=== PATIENT | male | born 1950 | race African-American/Black ===

== ENCOUNTER 2017-06-19 01:21 | Inpatient (IN) | payer BC ==
[~2017-06-19] VITALS: Ht 175.3 cm; Wt 102.1 kg
[~2017-06-19 01:21] MED LIST: SIMV80TA3 PO
--- NOTE | 2017-06-19 02:11 | RAD ---
EXAM: CT head without contrast HISTORY: left arm numbness COMPARISON: None. TECHNIQUE: Computed tomographic images of the head were obtained without contrast. RS compliance statement: One or more of the following individualized dose reduction techniques were utilized for this examination: 1. Automated exposure control 2. Adjustment of the mA and/or kV according to patient size 3. Use of iterative reconstruction technique FINDINGS: There is no acute intracranial process identified. Specifically, there are no intracranial blood products, extra-axial fluid collections, mass effect or midline shift. Ventricles and basilar cisterns are maintained. There are areas of decreased attenuation within the cerebral white matter, left basal ganglia and right thalamus, nonspecific although likely related to chronic small vessel disease. The visualized portions of the orbits and paranasal sinuses are unremarkable. There is opacification of the right mastoid air cells. Left mastoid air cells remain clear. No suspicious calvarial lesion is seen. IMPRESSION: 1. No acute intracranial findings. Findings suggestive of chronic microvascular ischemia, without CT evidence of acute ischemia. This was discussed with Dr. Gallardo in the ER per code stroke protocol at 02:07 on 06/19/2017. 2. Opacification of the right mastoid air cells, may represent mastoiditis. Electronically signed by: Janel Hitchcock MD (06/19/2017 2:08 AM) [facility]
[2017-06-19 02:23] LABS: BASO # 0.1 x10^3/uL (0.0-0.2); BASO % 1 % (0-3); EOS % 2 % (0-3); HEMATOCRIT 43.4 % (39.0-53.0); HEMOGLOBIN 14.1 g/dL (13.0-17.5); LYMPH # 3.3 x10^3/uL (1.0-4.8); LYMPH % 27 % (24-48); MEAN CORPUSCULAR HEMOGLOBIN 28 pg (25-35); MEAN CORPUSCULAR HGB CONC 33 g/dL (31-37); MEAN CORPUSCULAR VOLUME 88 fL (79-100); MONO % 8 % (0-9); NEUT % 62 % (31-73); PLATELET COUNT 317 x10^3/uL (140-400); RED BLOOD COUNT 4.96 x10^6/uL (4.30-5.70); RED CELL DISTRIBUTION WIDTH 15.9 % (11.5-14.5); WHITE BLOOD COUNT 12.4 x10^3/uL (4.0-11.0)
[2017-06-19 02:34] LABS: CREATININE 1.3 mg/dL (0.7-1.3); GFR 67.2; POTASSIUM 4.2 mmol/L (3.5-5.1)
[2017-06-19 02:35] LABS: PROTHROMBIN TIME PATIENT 12.5 SEC (11.7-14.0)
[2017-06-19 02:40] LABS: ALBUMIN 3.3 g/dL (3.4-5.0); ALBUMIN/GLOBULIN RATIO 0.8 (1.0-1.7); TOTAL BILIRUBIN 0.2 mg/dL (0.2-1.0); TOTAL PROTEIN 7.7 g/dL (6.4-8.2)
[2017-06-19] MEDS ORDERED: ASPIRIN CHEWABLE 81 MG TABLET. PO ONE (03:30)
[2017-06-19] MEDS ORDERED: ONDANSETRON PF 4 MG/2 ML VIAL. IV PRN (03:45)
[2017-06-19 04:35] VITALS: BP 146/84
--- NOTE | 2017-06-19 05:19 | PHYS DOC ---
Past Medical History Past Medical History: High Cholesterol, Hypertension Past Surgical History: No Surgical History Alcohol Use: Occasionally Drug Use: Marijuana Adult General Chief Complaint Chief Complaint: UPPER EXTREMITY INJURY HPI HPI Patient is a 66 year old -[place] male presents acute onset left upper cyst sensation. Onset started approximately 90 minutes prior to ED arrival. Patient states he was holding onto a cup and she dropped because he could not feeling cannot close his hands. Symptoms have not improved or worsened since time of onset. She denies denies denies headache, neck pain, facial weakness, numbness, slurred difficult speech, change of vision, difficulty swallowing, loss of balance, or lower extremity weakness or loss of sensation. Patient states he has had 2 or 3 similar episodes previous episodes of left upper extremity weakness primarily involving the hand resolved on their own. Patient did not seek care for any of the prior episodes. No other acute symptoms or complaints. Review of Systems Review of Systems Review symptoms as per history of present illness. All other review symptoms are negative. Current Medications Current Medications Current Medications Medications (Trade) Dose Ordered Sig/Tello Start Time Stop Time Status Last Admin Dose Admin Aspirin (Children'S Aspirin) 162 mg 1X ONCE 06/19/17 03:30 06/19/17 03:31 DC 06/19/17 03:20 162 MG Allergies Allergies Allergies Coded Allergies Type Severity Reaction Last Updated Verified naproxen Allergy Intermediate Hives 08/05/14 Yes Physical Exam Physical Exam Constitutional: Well developed, well nourished, no acute distress, non-toxic appearance. He serious 15. [] HENT: Normocephalic, atraumatic, bilateral external ears normal, oropharynx moist, no oral exudates, nose normal. [] Eyes: PERRLA, EOMI, conjunctiva normal, no discharge. [] Neck: Normal range of motion, no tenderness, supple, no stridor. [] Cardiovascular:Heart rate regular rhythm, no murmur [] Lungs & Thorax: Bilateral breath sounds clear to auscultation [] Abdomen: Bowel sounds normal, soft, no tenderness, no masses, no pulsatile masses. [] Skin: Warm, dry, no erythema, no rash. [] Back: No tenderness, no CVA tenderness. [] Extremities: No tenderness, no cyanosis, no clubbing, ROM intact, no edema. [] Neurologic: Alert and oriented X 3, radial nerves II through XII grossly intact , left upper extremity motor weakness involving forearm and left hand, patient able to raise left arm against gravity and keep elevated, no lower extremity weakness or loss of sensation. NIH stroke score of 2 per nursing staff evaluation [] Psychologic: Affect normal, judgement normal, mood normal. [] Current Patient Data Vital Signs Vital Signs Date Time Temp Pulse Resp B/P (MAP) Pulse Ox O2 Delivery O2 Flow Rate FiO2 06/19/17 03:22 66 20 145/81 (102) 99 Room Air 06/19/17 02:10 97.1 97.1 Lab Values Laboratory Tests Test 06/19/17 02:00 White Blood Count 12.4 x10^3/uL (4.0-11.0) H Red Blood Count 4.96 x10^6/uL (4.30-5.70) Hemoglobin 14.1 g/dL (13.0-17.5) Hematocrit 43.4 % (39.0-53.0) Mean Corpuscular Volume 88 fL (79-100) Mean Corpuscular Hemoglobin 28 pg (25-35) Mean Corpuscular Hemoglobin Concent 33 g/dL (31-37) Red Cell Distribution Width 15.9 % (11.5-14.5) H Platelet Count 317 x10^3/uL (140-400) Neutrophils (%) (Auto) 62 % (31-73) Lymphocytes (%) (Auto) 27 % (24-48) Monocytes (%) (Auto) 8 % (0-9) Eosinophils (%) (Auto) 2 % (0-3) Basophils (%) (Auto) 1 % (0-3) Neutrophils # (Auto) 7.7 x10^3uL (1.8-7.7) Lymphocytes # (Auto) 3.3 x10^3/uL (1.0-4.8) Monocytes # (Auto) 1.0 x10^3/uL (0.0-1.1) Eosinophils # (Auto) 0.3 x10^3/uL (0.0-0.7) Basophils # (Auto) 0.1 x10^3/uL (0.0-0.2) Prothrombin Time 12.5 SEC (11.7-14.0) Prothrombin Time INR 1.0 (0.8-1.1) PTT 27 SEC (24-38) Sodium Level 140 mmol/L (136-145) Potassium Level 4.2 mmol/L (3.5-5.1) Chloride Level 104 mmol/L (98-107) Carbon Dioxide Level 27 mmol/L (21-32) Anion Gap 9 (6-14) Blood Urea Nitrogen 14 mg/dL (8-26) Creatinine 1.3 mg/dL (0.7-1.3) Estimated GFR (Cockcroft-Gault) 67.2 BUN/Creatinine Ratio 11 (6-20) Glucose Level 121 mg/dL (70-99) H Calcium Level 9.0 mg/dL (8.5-10.1) Total Bilirubin 0.2 mg/dL (0.2-1.0) Aspartate Amino Transferase (AST) 18 U/L (15-37) Alanine Aminotransferase (ALT) 28 U/L (16-63) Alkaline Phosphatase 70 U/L (46-116) Total Protein 7.7 g/dL (6.4-8.2) Albumin 3.3 g/dL (3.4-5.0) L Albumin/Globulin Ratio 0.8 (1.0-1.7) L Laboratory Tests 06/19/17 02:00 Laboratory Tests 06/19/17 02:00 EKG EKG ] Radiology/Procedures Radiology/Procedures [CT head: No acute disease per radiology report.] Course & Med Decision Making Course & Med Decision Making Pertinent Labs and Imaging studies reviewed. (See chart for details) [Patien with acute CVA with persistent left upper extremity weakness loss of sensation without improvement while in the emergency department. NIH stroke score of 2. Patient does not meet criteria for TPA therapy given low stroke score. Aspirin given. Dr. Oliver to admit with anticipated neurology later this morning.. ] Dragon Disclaimer Dragon Disclaimer This electronic medical record was generated, in whole or in part, using a voice recognition dictation system. Departure Departure Impression: Primary Impression: CVA (cerebral vascular accident) Additional Impressions: Left arm weakness Left arm numbness Disposition: ADMITTED INPATIENT Admitting Physician: Bonny Oliver Condition: GUARDED Referrals: Gerard LINDO MD (PCP) Problem Qualifiers ALBERTINAINESSA BLANCHARD Jun 19, 2017 05:19
[2017-06-19] MEDS ORDERED: PNEUMOCOCCAL VAX SCREEN BY RX. MC ONE (05:45)
--- NOTE | 2017-06-19 06:59 | RAD ---
Chest x-ray Indication: Chest pain Technique: Portable AP upright chest plane from Comparison: Previous study from 2013 Findings: Heart is normal in size. Lungs are clear. No pneumothorax or pleural effusion. Mild left basilar atelectasis. Visualized bony thorax within normal limits. Impression: No acute cardiopulmonary process.
--- NOTE | 2017-06-19 07:10 | EKG ---
[facility] [address] [place] [address] Test Date: 2017-06-19 Test Time: 02:09:44 Pat Name: STEVAN BERMAN Department: Room: 672 1 Gender: M Trauma Surgeon: : 1950 Requested By: INESSA ENG Order Number: [id number] Reading MD: Brennen Soares Measurements Intervals [place] Rate: 65 P: 53 MO: 160 QRS: 27 QRSD: 82 T: 15 QT: 400 QTc: 417 Interpretive Statements SINUS RHYTHM Electronically Signed On 06-23-2017 14:48:58 CDT by Brennen Soares
[2017-06-19 07:24] VITALS: BP 148/90
[2017-06-19] MEDS ORDERED: ASPI-482 PO (08:53)
[2017-06-19] MEDS ORDERED: ATEN1TAB3 PO (08:53)
[2017-06-19] MEDS ORDERED: ATORVASTATIN CA80 MG PO (08:53)
[2017-06-19] MEDS ORDERED: NON FORMULARY ITEM (Atenolol/Chlorthalidone (Atenolol-Chlorthal 50-25 Tb) 1 TAB) PO SCH (09:00)
[2017-06-19] MEDS ORDERED: 0.9 % SODIUM CHLORIDE 10 ML DISP.SYRIN. IV PRN (09:00)
[2017-06-19] MEDS ORDERED: ASPIRIN ENTERIC COATED 81 MG TABLET.DR. PO SCH (09:00)
[2017-06-19] MEDS ORDERED: NON FORMULARY ITEM (Atorvastatin Calcium 1 TAB) PO SCH (09:00)
[2017-06-19] MEDS ORDERED: ACETAMINOPHEN 650 MG SUPP.RECT. PR PRN (09:00)
[2017-06-19] MEDS ORDERED: PNEUMOC CONJ VACC 23-VALENT 0.5 ML VIAL. VAX IM ONE (09:00)
--- NOTE | 2017-06-19 09:01 | PDOC ---
PROGRESS NOTES Subjective Subjective Patient reports weakness in left hand persists. No pain, no other weakness. Objective Objective Vital Signs Date Time Temp Pulse Resp B/P (MAP) Pulse Ox O2 Delivery O2 Flow Rate FiO2 06/19/17 07:24 98.1 57 18 148/90 (109) 97 Room Air 98.1 Intake and Output 06/19/17 07:00 Intake Total 0 ml Balance 0 ml Intake Oral 0 ml Physical Exam Abdomen: Normal bowel sounds, Soft, No tenderness Heart: Regular rate Extremities: No edema General: Alert, Oriented X3, No acute distress Lungs: Other (BS mildly decreased throughout but otherwise CTA) Neuro: Normal speech, Other (no movement in left hand, no valet parker. Left shoulder and elbow WNL) Assessment Assessment Problems Medical Problems: (1) CVA (cerebral vascular accident) Status: Acute (2) Left arm numbness Status: Acute (3) Left arm weakness Status: Acute Plan Plan of Care 1. left hand weakness - persists. CT head without contrast was negative, MRI brain ordered. Consult with Dr Canela pending. Patient had not been taking ASA regularly. 2. HTN - resume home medication and follow. 3. hyperlipidemia - patient had not been taking statin regularly. Last FLP in our office showed elevated lipids. Importance of daily medication discussed with patient. Resume statin. 4. hyperglycemia - glucose mildly elevated on admission and office lab. Patient denies FH of DM. Check A1C. 5. tobaccoism - patient declines nicotine patch while here, does not appear interested in smoking cessation at this time. 6. mastoiditis - patient has been having pain in his right ear and CT head shows possible infection, will start abx. Comment Review of Relevant I have reviewed the following items ivette (where applicable) has been applied. Labs Laboratory Tests Test 06/19/17 02:00 White Blood Count 12.4 x10^3/uL (4.0-11.0) Red Blood Count 4.96 x10^6/uL (4.30-5.70) Hemoglobin 14.1 g/dL (13.0-17.5) Hematocrit 43.4 % (39.0-53.0) Mean Corpuscular Volume 88 fL (79-100) Mean Corpuscular Hemoglobin 28 pg (25-35) Mean Corpuscular Hemoglobin Concent 33 g/dL (31-37) Red Cell Distribution Width 15.9 % (11.5-14.5) Platelet Count 317 x10^3/uL (140-400) Neutrophils (%) (Auto) 62 % (31-73) Lymphocytes (%) (Auto) 27 % (24-48) Monocytes (%) (Auto) 8 % (0-9) Eosinophils (%) (Auto) 2 % (0-3) Basophils (%) (Auto) 1 % (0-3) Neutrophils # (Auto) 7.7 x10^3uL (1.8-7.7) Lymphocytes # (Auto) 3.3 x10^3/uL (1.0-4.8) Monocytes # (Auto) 1.0 x10^3/uL (0.0-1.1) Eosinophils # (Auto) 0.3 x10^3/uL (0.0-0.7) Basophils # (Auto) 0.1 x10^3/uL (0.0-0.2) Prothrombin Time 12.5 SEC (11.7-14.0) Prothromb Time International Ratio 1.0 (0.8-1.1) Activated Partial Thromboplast Time 27 SEC (24-38) Sodium Level 140 mmol/L (136-145) Potassium Level 4.2 mmol/L (3.5-5.1) Chloride Level 104 mmol/L (98-107) Carbon Dioxide Level 27 mmol/L (21-32) Anion Gap 9 (6-14) Blood Urea Nitrogen 14 mg/dL (8-26) Creatinine 1.3 mg/dL (0.7-1.3) Estimated GFR (Cockcroft-Gault) 67.2 BUN/Creatinine Ratio 11 (6-20) Glucose Level 121 mg/dL (70-99) Calcium Level 9.0 mg/dL (8.5-10.1) Total Bilirubin 0.2 mg/dL (0.2-1.0) Aspartate Amino Transf (AST/SGOT) 18 U/L (15-37) Alanine Aminotransferase (ALT/SGPT) 28 U/L (16-63) Alkaline Phosphatase 70 U/L (46-116) Total Protein 7.7 g/dL (6.4-8.2) Albumin 3.3 g/dL (3.4-5.0) Albumin/Globulin Ratio 0.8 (1.0-1.7) Laboratory Tests Test 06/19/17 02:00 White Blood Count 12.4 x10^3/uL (4.0-11.0) Red Blood Count 4.96 x10^6/uL (4.30-5.70) Hemoglobin 14.1 g/dL (13.0-17.5) Hematocrit 43.4 % (39.0-53.0) Mean Corpuscular Volume 88 fL (79-100) Mean Corpuscular Hemoglobin 28 pg (25-35) Mean Corpuscular Hemoglobin Concent 33 g/dL (31-37) Red Cell Distribution Width 15.9 % (11.5-14.5) Platelet Count 317 x10^3/uL (140-400) Neutrophils (%) (Auto) 62 % (31-73) Lymphocytes (%) (Auto) 27 % (24-48) Monocytes (%) (Auto) 8 % (0-9) Eosinophils (%) (Auto) 2 % (0-3) Basophils (%) (Auto) 1 % (0-3) Neutrophils # (Auto) 7.7 x10^3uL (1.8-7.7) Lymphocytes # (Auto) 3.3 x10^3/uL (1.0-4.8) Monocytes # (Auto) 1.0 x10^3/uL (0.0-1.1) Eosinophils # (Auto) 0.3 x10^3/uL (0.0-0.7) Basophils # (Auto) 0.1 x10^3/uL (0.0-0.2) Prothrombin Time 12.5 SEC (11.7-14.0) Prothromb Time International Ratio 1.0 (0.8-1.1) Activated Partial Thromboplast Time 27 SEC (24-38) Sodium Level 140 mmol/L (136-145) Potassium Level 4.2 mmol/L (3.5-5.1) Chloride Level 104 mmol/L (98-107) Carbon Dioxide Level 27 mmol/L (21-32) Anion Gap 9 (6-14) Blood Urea Nitrogen 14 mg/dL (8-26) Creatinine 1.3 mg/dL (0.7-1.3) Estimated GFR (Cockcroft-Gault) 67.2 BUN/Creatinine Ratio 11 (6-20) Glucose Level 121 mg/dL (70-99) Calcium Level 9.0 mg/dL (8.5-10.1) Total Bilirubin 0.2 mg/dL (0.2-1.0) Aspartate Amino Transf (AST/SGOT) 18 U/L (15-37) Alanine Aminotransferase (ALT/SGPT) 28 U/L (16-63) Alkaline Phosphatase 70 U/L (46-116) Total Protein 7.7 g/dL (6.4-8.2) Albumin 3.3 g/dL (3.4-5.0) Albumin/Globulin Ratio 0.8 (1.0-1.7) Medications Current Medications Aspirin (Children'S Aspirin) 162 mg 1X ONCE PO Last administered on 06/19/17t 03:20; Start 06/19/17 at 03:30; Stop 06/19/17 at 03:31; Status DC Ondansetron HCl (Zofran) 4 mg PRN Q8HRS PRN IV NAUSEA/VOMITING; Start 06/19/17 at 03:45; Stop 06/20/17 at 03:44 Pneumococcal Polyvalent Vaccine (Do NOT chart on this placeholder) 1 each 1X ONCE MC ; Start 06/19/17 at 05:45; Stop 06/19/17 at 05:46; Status UNV Pneumococcal Polyvalent Vaccine (Pneumovax 23) 0.5 ml ONCE ONCE VAX IM ; Start 06/19/17 at 09:00; Stop 06/19/17 at 09:01 Active Scripts Active Atenolol-Chlorthal 50-25 Tb (Atenolol/Chlorthalidone) 1 Each Tablet 1 Tab PO DAILY Aspir 81 (Aspirin) 81 Mg Tablet.dr 1 Tab PO DAILY Atorvastatin Calcium 80 Mg Tablet 1 Tab PO DAILY Vitals/I & O Vital Sign - Last 24 Hours 06/19/17 06/19/17 06/19/17 06/19/17 02:10 03:22 03:40 04:00 Temp 97.1 97.1 Pulse 67 66 64 64 Resp 20 20 18 18 B/P (MAP) 129/75 (93) 145/81 (102) 117/65 (82) 133/72 (92) Pulse Ox 97 99 97 96 O2 Delivery Room Air Room Air 06/19/17 06/19/17 06/19/17 04:35 05:24 07:24 Temp 98.2 98.1 98.2 98.1 Pulse 61 57 Resp 18 18 B/P (MAP) 146/84 (104) 148/90 (109) Pulse Ox 97 97 O2 Delivery Room Air Room Air Room Air Intake and Output 06/18/17 06/18/17 06/19/17 15:00 23:00 07:00 Intake Total 0 ml Balance 0 ml MELANI ROWE MD Jun 19, 2017 09:01
[2017-06-19] MEDS ORDERED: LABETALOL 20 MG/4 ML DISP.SYRIN. IV PRN (09:30)
[2017-06-19] MEDS: ATENOLOL 50 MG TABLET. PO SCH (09:30)
[2017-06-19] MEDS: CHLORTHALIDONE 25 MG TABLET. PO SCH (09:30)
[2017-06-19] MEDS: ENOXAPARIN 40 MG/0.4 ML SYRINGE. SQ SCH (09:55)
[2017-06-19] MEDS: IV NORMAL SALINE 1000ML BAG 1,000 ML IV SCH ×2 (09:55→19:30)
[2017-06-19] MEDS: AMOXICILLIN/K CLAV 875/125MG TABLET. PO SCH ×2 (09:56→20:26)
[2017-06-19] MEDS: ASPIRIN ENTERIC COATED 325 MG TABLET.DR. PO SCH (09:56)
--- NOTE | 2017-06-19 10:02 | HP ---
ADMIT DATE: 06/19/2017 CHIEF COMPLAINT: Left hand weakness. HISTORY OF PRESENT ILLNESS: The patient is a 66-year-old male who presented to the Emergency Room with the above complaint. He reported the onset of symptoms earlier on the evening prior to admission. He noticed that he was suddenly unable to hold a cup in his left hand, he actually dropped it and had no movement in his left hand. This weakness persisted, but did not worsen and he came to the Emergency Room. Initial evaluation there showed significant weakness in the left hand only. A CT of the head without contrast did not show acute hemorrhage. The patient was given an aspirin and admitted for further treatment. PAST MEDICAL HISTORY: Hypertension, hyperlipidemia, vitamin D deficiency, erectile dysfunction. PAST SURGICAL HISTORY: Hernia repair and right shoulder surgery. ALLERGIES: THE PATIENT IS ALLERGIC TO NAPROXEN. HOME MEDICATIONS: Aspirin 81 mg daily, atorvastatin 80 mg daily, atenolol/chlorthalidone 50/25 one daily, Viagra 100 mg p.r.n., [id number] vitamin D daily. The patient reports he was not taking any of these medications on a daily basis. FAMILY HISTORY: Noncontributory. SOCIAL HISTORY: The patient is . He is retired. He does continue to smoke cigarettes. He does not drink alcohol to excess. REVIEW OF SYSTEMS: The patient states he has been feeling well. He denies fever or chills. He denies chest pain or palpitations. He has somewhat of a chronic cough which has not worsened recently. He denies any shortness of breath. He denies abdominal pain, nausea or vomiting. He denies lower extremity edema. He has had pain in his right ear recently. He reports that he gets ear infections about once a year and has not seen a doctor for these symptoms presently. He denies weakness in any other extremities. He admits that he may have had some weakness in his left hand in the past which did not persist and he did not see a doctor about that. He readily admits he does not take his prescription medication daily nor had he been on the aspirin on a daily basis. PHYSICAL EXAMINATION: GENERAL: The patient is alert and oriented x 3, resting comfortably in bed in no acute distress. HEENT: PERRL, EOMI, sclerae clear. Oropharynx: Mucous membranes moist. NECK: Supple, without lymphadenopathy. CHEST: Breath sounds mildly decreased throughout, but otherwise clear to auscultation. CARDIOVASCULAR: Regular rhythm without murmur. ABDOMEN: Soft, nontender, normoactive bowel sounds are present. EXTREMITIES: Without edema. NEUROLOGIC: The patient has no strength in his left hand. 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 Range of motion and strength in the left elbow and shoulder appear within normal limits. ASSESSMENT AND PLAN: 1. Left hand weakness, this has persisted. An MRI of the brain is ordered and a consult with Dr. Canela is pending. The patient has not been taking aspirin daily, so this would not be considered an aspirin failure. We will certainly resume daily aspirin while he is here. 2. Hypertension. Resume home medication and follow. 3. Hyperlipidemia. Resume statin daily. The patient denies problems with it when he was taking it. The importance of daily medication in controlling chronic medical conditions was discussed with him including the risks of stroke, heart attack, etc. from uncontrolled hypertension and hyperlipidemia, especially with smoking. The patient states he will try to do better with taking medication daily. 4. Hyperglycemia. The patient's glucose was mildly elevated on admission and also recent lab in our office. We will check an A1c. 5. Tobaccoism. The patient declines a nicotine patch while he is here. He does not really appear interested in smoking cessation at this time. 6. Mastoiditis. The patient has been having pain in his right ear and a CT of the head shows a possible infection. We will start oral antibiotics for treatment of this. MELANI ROWE MD DR: YARI/kartik JOB#: [id number] / [id number] MICHELE
--- NOTE | 2017-06-19 10:06 | PDOC2 ---
NEUROLOGY CONSULT Date of Admission Date of Admission DATE: 06/19/17 TIME: 10:00 Reason for Consult Reason for Consult: Stroke symptoms Referring Physician Referring Physician: Dr. Patel Source Source: Chart review, Patient History of Present Illness History of Present Illness The patient is a 66-year-old right-handed male who has had intermittent weakness and numbness of the left arm for as long as several weeks. Early this morning he noticed complete paralysis of the left hand. He denies neck or shoulder pain or any injuries. There are no symptoms in the face or leg. He denies any cognitive change. There is no prior history of stroke, seizure, or head injury. He has been taking his aspirin only intermittently and has been noncompliant with his statin medication. Past Medical History Cardiovascular: HTN, Hyperlipidemia Pulmonary: Pneumonia Past Surgical History Past Surgical History: Hernia Repair, Other (right rotator cuff) Family History Family History: CVA Social History Social History , smokes a pack of cigarettes per day, 2 beers a day, occasional marijuana. Current Medications Current Medications Current Medications Aspirin (Children'S Aspirin) 162 mg 1X ONCE PO Last administered on 06/19/17 03:20; Start 06/19/17 at 03:30; Stop 06/19/17 at 03:31; Status DC Ondansetron HCl (Zofran) 4 mg PRN Q8HRS PRN IV NAUSEA/VOMITING; Start 06/19/17 at 03:45; Stop 06/20/17 at 03:44 Pneumococcal Polyvalent Vaccine (Do NOT chart on this placeholder) 1 each 1X ONCE MC ; Start 06/19/17 at 05:45; Stop 06/19/17 at 05:46; Status UNV Pneumococcal Polyvalent Vaccine (Pneumovax 23) 0.5 ml ONCE ONCE VAX IM Last administered on 06/19/17 08:56; Start 06/19/17 at 09:00; Stop 06/19/17 at 09:01 ; Status DC Aspirin (Ecotrin) 81 mg DAILY PO ; Start 06/19/17 at 09:00; Status UNV Non-Formulary Medication 1 tab DAILY PO ; Start 06/19/17 at 09:00; Status UNV Non-Formulary Medication 1 tab DAILY PO ; Start 06/19/17 at 09:00; Status UNV Sodium Chloride (Normal Saline Flush) 3 ml QSHIFT PRN IV AFTER MEDS AND BLOOD DRAWS; Start 06/19/17 at 09:00 Sodium Chloride 1,000 ml @ 100 mls/hr Q10H IV Last administered on 06/19/17 09:55; Start 06/19/17 at 09:30 Aspirin (Ecotrin) 325 mg DAILYWBKFT PO Last administered on 06/19/17 09:56; Start 06/19/17 at 09:30 Atorvastatin Calcium (Lipitor) 20 mg QHS PO ; Start 06/19/17 at 21:00 Labetalol HCl (Normodyne) 10 mg PRN Q10MIN PRN IV HYPERTENSION, SEE COMMENTS; Start 06/19/17 at 09:30 Acetaminophen (Tylenol) 650 mg PRN Q6HRS PRN PO FEVER; Start 06/19/17 at 09:30 Acetaminophen (Acetaminophen Supp) 650 mg PRN Q6HRS PRN OH FEVER; Start at 09:00 Enoxaparin Sodium (Lovenox 40mg Syringe) 40 mg Q24H SQ Last administered on 09:55; Start 06/19/17 at 10:00 Amoxicillin/ Clavulanate Potassium (Augmentin 875/ 125mg) 1 tab BID PO Last administered on 06/19/17 09:56; Start 06/19/17 at 09:30 Atenolol (Tenormin) 50 mg DAILY PO ; Start 06/19/17 at 09:30 Chlorthalidone (Thalitone) 25 mg DAILY PO ; Start 06/19/17 at 09:30 Active Scripts Active Atenolol-Chlorthal 50-25 Tb (Atenolol/Chlorthalidone) 1 Each Tablet 1 Tab PO DAILY Aspir 81 (Aspirin) 81 Mg Tablet. 1 Tab PO DAILY Atorvastatin Calcium 80 Mg Tablet 1 Tab PO DAILY Allergies Allergies: Coded Allergies: naproxen (Verified Allergy, Intermediate, Hives, 08/05/14) ROS Review of System Patient denies fevers, chills, weight loss, dyspnea, angina, abdominal pain, change in bowels. He has urinary urgency. 14 point review of systems is negative. Physical Exam Physical Examination PHYSICAL EXAMINATION: Vital signs: see above. General appearance is normal and in no acute distress. HEENT: Normocephalic and nontraumatic. Eyes, nose, ears, and throat are unremarkable. Neck is supple. No lymphadenopathy. No bruits are heard over the carotid artery. No crepitus. NEUROLOGICAL EXAMINATION: Mental Status Examination: Alert. Oriented to time, place, and person.Answers questions and follows commends. Pupils are equal round and reactive to light and accommodation. Funduscopic exam: No papilledema. Extraocular movements are intact. Visual field exam shows no defect on the direct confrontation. No motor or sensory deficits on the facial exam. Uvula in the midline and the soft palate elevated symmetrically. No deviation of the tongue to any direction. Gross hearing is normal. Shoulder shrug normal. Muscle tone is normal. Muscle strength is 3/5 for both wrist extension and flexion as well as biceps and triceps, otherwise 5/5. Deep tendon reflexes are 2+ all around. Plantar reflex is with flexion response bilaterally. [id number] test performance is accurate. Tandem walk test is accurate. Alternative movements are accurate. Romberg test is negative. Gait is normal. Sensory exam shows no deficits. No cerebellar signs are elicited. Vitals VITALS Vital Signs Date Time Temp Pulse Resp B/P (MAP) Pulse Ox O2 Delivery O2 Flow Rate FiO2 06/19/17 07:24 98.1 57 18 148/90 (109) 97 Room Air 98.1 Labs Labs Laboratory Tests Test 06/19/17 02:00 White Blood Count 12.4 x10^3/uL (4.0-11.0) Red Blood Count 4.96 x10^6/uL (4.30-5.70) Hemoglobin 14.1 g/dL (13.0-17.5) Hematocrit 43.4 % (39.0-53.0) Mean Corpuscular Volume 88 fL (79-100) Mean Corpuscular Hemoglobin 28 pg (25-35) Mean Corpuscular Hemoglobin Concent 33 g/dL (31-37) Red Cell Distribution Width 15.9 % (11.5-14.5) Platelet Count 317 x10^3/uL (140-400) Neutrophils (%) (Auto) 62 % (31-73) Lymphocytes (%) (Auto) 27 % (24-48) Monocytes (%) (Auto) 8 % (0-9) Eosinophils (%) (Auto) 2 % (0-3) Basophils (%) (Auto) 1 % (0-3) Neutrophils # (Auto) 7.7 x10^3uL (1.8-7.7) Lymphocytes # (Auto) 3.3 x10^3/uL (1.0-4.8) Monocytes # (Auto) 1.0 x10^3/uL (0.0-1.1) Eosinophils # (Auto) 0.3 x10^3/uL (0.0-0.7) Basophils # (Auto) 0.1 x10^3/uL (0.0-0.2) Prothrombin Time 12.5 SEC (11.7-14.0) Prothromb Time International Ratio 1.0 (0.8-1.1) Activated Partial Thromboplast Time 27 SEC (24-38) Sodium Level 140 mmol/L (136-145) Potassium Level 4.2 mmol/L (3.5-5.1) Chloride Level 104 mmol/L (98-107) Carbon Dioxide Level 27 mmol/L (21-32) Anion Gap 9 (6-14) Blood Urea Nitrogen 14 mg/dL (8-26) Creatinine 1.3 mg/dL (0.7-1.3) Estimated GFR (Cockcroft-Gault) 67.2 BUN/Creatinine Ratio 11 (6-20) Glucose Level 121 mg/dL (70-99) Calcium Level 9.0 mg/dL (8.5-10.1) Total Bilirubin 0.2 mg/dL (0.2-1.0) Aspartate Amino Transf (AST/SGOT) 18 U/L (15-37) Alanine Aminotransferase (ALT/SGPT) 28 U/L (16-63) Alkaline Phosphatase 70 U/L (46-116) Total Protein 7.7 g/dL (6.4-8.2) Albumin 3.3 g/dL (3.4-5.0) Albumin/Globulin Ratio 0.8 (1.0-1.7) Laboratory Tests Test 06/19/17 02:00 White Blood Count 12.4 x10^3/uL (4.0-11.0) Red Blood Count 4.96 x10^6/uL (4.30-5.70) Hemoglobin 14.1 g/dL (13.0-17.5) Hematocrit 43.4 % (39.0-53.0) Mean Corpuscular Volume 88 fL (79-100) Mean Corpuscular Hemoglobin 28 pg (25-35) Mean Corpuscular Hemoglobin Concent 33 g/dL (31-37) Red Cell Distribution Width 15.9 % (11.5-14.5) Platelet Count 317 x10^3/uL (140-400) Neutrophils (%) (Auto) 62 % (31-73) Lymphocytes (%) (Auto) 27 % (24-48) Monocytes (%) (Auto) 8 % (0-9) Eosinophils (%) (Auto) 2 % (0-3) Basophils (%) (Auto) 1 % (0-3) Neutrophils # (Auto) 7.7 x10^3uL (1.8-7.7) Lymphocytes # (Auto) 3.3 x10^3/uL (1.0-4.8) Monocytes # (Auto) 1.0 x10^3/uL (0.0-1.1) Eosinophils # (Auto) 0.3 x10^3/uL (0.0-0.7) Basophils # (Auto) 0.1 x10^3/uL (0.0-0.2) Prothrombin Time 12.5 SEC (11.7-14.0) Prothromb Time International Ratio 1.0 (0.8-1.1) Activated Partial Thromboplast Time 27 SEC (24-38) Sodium Level 140 mmol/L (136-145) Potassium Level 4.2 mmol/L (3.5-5.1) Chloride Level 104 mmol/L (98-107) Carbon Dioxide Level 27 mmol/L (21-32) Anion Gap 9 (6-14) Blood Urea Nitrogen 14 mg/dL (8-26) Creatinine 1.3 mg/dL (0.7-1.3) Estimated GFR (Cockcroft-Gault) 67.2 BUN/Creatinine Ratio 11 (6-20) Glucose Level 121 mg/dL (70-99) Calcium Level 9.0 mg/dL (8.5-10.1) Total Bilirubin 0.2 mg/dL (0.2-1.0) Aspartate Amino Transf (AST/SGOT) 18 U/L (15-37) Alanine Aminotransferase (ALT/SGPT) 28 U/L (16-63) Alkaline Phosphatase 70 U/L (46-116) Total Protein 7.7 g/dL (6.4-8.2) Albumin 3.3 g/dL (3.4-5.0) Albumin/Globulin Ratio 0.8 (1.0-1.7) Images Images CT head: FINDINGS: There is no acute intracranial process identified. Specifically, there are no intracranial blood products, extra-axial fluid collections, mass effect or midline shift. Ventricles and basilar cisterns are maintained. There are areas of decreased attenuation within the cerebral white matter, left basal ganglia and right thalamus, nonspecific although likely related to chronic small vessel disease. The visualized portions of the orbits and paranasal sinuses are unremarkable. There is opacification of the right mastoid air cells. Left mastoid air cells remain clear. No suspicious calvarial lesion is seen. IMPRESSION: 1. No acute intracranial findings. Findings suggestive of chronic microvascular ischemia, without CT evidence of acute ischemia. This was discussed with Dr. Gallardo in the ER per code stroke protocol at 02:07 on 06/19/2017. 2. Opacification of the right mastoid air cells, may represent mastoiditis. Assessment/Plan Assessment/Plan Impression: Superficially this appears to be a stroke, but the distribution of weakness is unusual, especially with profound extensor weakness in the left arm and lack of signs anywhere else in the body. Therefore, differential diagnosis includes cervical polyradiculopathy, brachial plexopathy, or even peripheral nerve entrapment such as radial nerve palsy. Again, though, the weakness falls across several myotomes and nerve distributions. Emergency room physician made decision that he was not a candidate for TPA given the low NIH score. Recommendations: MRI of the brain But I am also checking MRI of the cervical spine and brachial plexus Echocardiogram Carotid Dopplers Aspirin Statin Rehabilitation modalities. I ordered a cardiac diet as he did pass the swallow screen yesterday. Thank you for letting me help with the patient's care. JASPREET SOLIS MD Jun 19, 2017 10:06
[2017-06-19 10:37] VITALS: BP 147/88
--- NOTE | 2017-06-19 12:43 | RAD ---
Carotid ultrasound, 06/19/2017: History: Stroke Duplex evaluation of the carotid arteries in the neck was performed including grayscale, color-flow and spectral Doppler analysis. There is mild intimal thickening and smooth plaquing at the carotid bifurcations. The Doppler data obtained from the bifurcations reveals no significant focal velocity acceleration to suggest a hemodynamically significant carotid stenosis. The peak systolic velocity in the right internal carotid artery is 50 cm/s with an end-diastolic velocity of 20 cm/s. The peak systolic velocity in the left internal carotid artery 66 cm/s with end diastolic velocity of 24 cm/s. Antegrade flow is present in both vertebral arteries in the neck. IMPRESSION: Mild atherosclerotic plaquing at both carotid bifurcations with underlying luminal narrowing in the 0-50% diameter range bilaterally. Note: Stenosis calculations for CTA, MRA and conventional angiography are based upon determination of the distal ICA diameter in accordance with the NASCET methodology. Stenosis calculations for Doppler studies are derived from validated velocity criteria which are known to correlate with NASCET methodology of determining stenosis.
--- NOTE | 2017-06-19 12:57 | CARD ---
APPROVED REPORT EXAM: Two-dimensional and M-mode echocardiogram with Doppler and color Doppler. Other Information Quality : GoodHR: 55bpm Rhythm : Bradycardia INDICATION CVA/TIA Echo Enhancing Agent Indication: Rule Out Septal Defect Agent/Amount Used: Agitated saline 8mL RISK FACTORS Hypertension Hyperlipidemia 2D DIMENSIONS RVDd3.0 (2.9-3.5cm)Left Atrium(2D)3.6 (1.6-4.0cm) IVSd1.3 (0.7-1.1cm)Aortic Root(2D)3.4 (2.0-3.7cm) LVDd5.0 (3.9-5.9cm)LVOT Diameter2.4 (1.8-2.4cm) PWd1.3 (0.7-1.1cm)LVDs3.6 (2.5-4.0cm) FS (%) 28.8 %SV65.2 ml LVEF(%)55.2 (>50%) Aortic Valve AoV Peak Be.108.6cm/sAoV VTI21.0cm AO Peak GR.4.7mmHgLVOT Peak Be.83.0cm/s AO Mean GR.2mmHgAVA (VMAX)3.40cm2 Mitral Valve MV E Fvfopmoi87.7cm/sMV E Peak Gr.1mmHg MV DECEL [id number] A Vctuudkh03.9cm/s MV E Mean Gr.0mmHgE/A Ratio0.9 MV A [id number] Pulmonary Valve PV Peak Wctmtroz99.0cm/s Pulmonary Vein S1 Nipmiava33.6cm/sD2 Avrsxsid65.4cm/s PVa [id number] LEFT VENTRICLE The left ventricle is normal size. There is mild concentric left ventricular hypertrophy. The left ve ntricular systolic function is normal. The Ejection Fraction is 55%. There is normal LV segmental wal l motion. Transmitral Doppler flow pattern is Grade I-abnormal relaxation pattern. No left ventricle thrombus noted on this study. There is no ventricular septal defect visualized. RIGHT VENTRICLE The right ventricle is normal size. There is normal right ventricular wall thickness. The right ventr icular systolic function is normal. ATRIA The left atrium is mildly dilated. The right atrium size is normal. The interatrial septum is intact with no evidence for an atrial septal defect or patent foramen ovale as noted on 2-D or Doppler imagi ng. Injection of contrast documented no interatrial shunt. AORTIC VALVE The aortic valve is mildly thickened. The aortic valve is trileaflet. Doppler and Color Flow revealed no significant aortic regurgitation. There is no significant aortic valvular stenosis. MITRAL VALVE The mitral valve leaflets are mildly thickened. There is no evidence of mitral valve prolapse. There is no mitral valve stenosis. Doppler and Color Flow revealed trace mitral regurgitation. TRICUSPID VALVE Doppler and Color Flow revealed trace tricuspid regurgitation. Unable to determine pulmonary artery p ressure at exam time. GREAT VESSELS The aortic root is normal in size. The ascending aorta is mildly dilated. The pulmonary artery is nor mal. The IVC is normal in size and collapses >50% with inspiration. PERICARDIAL EFFUSION There is no evidence of significant pericardial effusion. Critical Notification Critical Value: No <Conclusion> The left ventricular systolic function is normal. The Ejection Fraction is 55%. There is normal LV segmental wall motion. Transmitral Doppler flow pattern is Grade I-abnormal relaxation pattern. Trace mitral regurgitation. Trace tricuspid regurgitation. There is no evidence of significant pericardial effusion. Injection of contrast documented no interatrial shunt.
--- NOTE | 2017-06-19 15:09 | RAD ---
MRI Brain without contrast History: Left arm tingling for one week, left arm paralysis in the last 24 hours Technique: Multiplanar, multisequential noncontrast MR imaging was performed of the brain. Contrast: None Comparison: None Findings: There is mild motion. There is some patchy foci of restricted diffusion of the right frontal parietal lobes with cortical involvement, also more posteriorly of the right parietal lobe involving the white matter. There is also a very small focus of the right occipital lobe. There are also a couple small foci of the right centrum semiovale. There is variable mild corresponding T2 and FLAIR hyperintense signal of the largest areas of restricted diffusion. There is large old lacunar infarct of the left bessie, also of the right thalamus, small focus of the left thalamus, other foci of the bilateral basal ganglia and centrum semiovale, and small focus left periatrial white matter. There are multiple other foci of T2 and FLAIR hyperintense abnormality of the supratentorial white matter bilaterally, minimally of the bessie. There is no midline shift or extra-axial fluid collection. Ventricular size is within normal limits. There is some hemosiderin deposition associated with the left basal ganglia, also couple of small foci of old microhemorrhage of the left parietal lobe. There is preservation of the major arterial intracranial flow voids at the skull base. There is severe fluid and thickening of the right mastoid air cells, mild thickening diffusely on the left. There is patchy very mild ethmoid air cell and frontal sinus mucosal thickening. Cerebellar tonsils are normal in location. There is preservation of marrow signal of the clivus. There is no significant abnormality of the pineal gland or pituitary gland. Impression: 1. There are scattered foci of early subacute infarcts of the right cerebral hemisphere greatest of the right frontal parietal lobes. 2. There are multiple old lacunar infarcts as stated. There is old hemorrhage/hemosiderin deposition of the left basal ganglia. Other multifocal T2 and FLAIR hyperintense abnormality is probably due to chronic microvascular ischemic disease. 3. There is prominent fluid of the right mastoid air cells of uncertain sterility, diffuse thickening on the left. FOR INTERNAL CODING PURPOSES Critical result: Findings discussed with patient's nurse Sejal at 06/19/2017 3:05 PM, to inform doctor of findings. RESULT CODE: (C) Electronically signed by: Win Chilel MD (06/19/2017 3:06 PM) [id number]
--- NOTE | 2017-06-19 16:14 | RAD ---
MRI Cervical Spine Without Contrast History:Loss of movement of left hand and arm Technique: Multiplanar, multi sequential noncontrast MR imaging was performed of the cervical spine. Comparison: None Findings: There is motion degradation for all image sequences. Cervical vertebral body stature and AP alignment are adequate. There is straightening of cervical spine. Cervical cord caliber is within normal limits, no obvious or expansile signal abnormality, limited evaluation for subtle signal change due to motion. There is moderate to severe degenerative disc disease C5-C6, to lesser degree C6-7, and minimally at C4-5. There are old lacunar infarcts of the bessie as seen on the brain MRI. C2-3: Neural foramina and spinal canal are adequate. C3-C4: Neural foramina and spinal canal are adequate. C4-C5: There is minimal disc osteophyte complex. Central canal is narrowed to 8 to 9 mm. Right neural foramen is adequate. There is likely mild narrowing of the left neural foramen C5-C6: There is minimal disc osteophyte complex. Central canal is minimally narrowed to 8 to 9 mm. There is mild uncovertebral degenerative change. Right neural foramen is overall adequate, likely mild overall narrowing left neural foramen with shallow bulge near the anterior margin. C6-C7: There is very minimal disc osteophyte complex. Central canal is minimally narrowed to 9 to 10 mm. Neural foramina are not significantly narrowed. C7-T1: Spinal canal and neural foramina are adequate. Impression: 1. Exam is degraded by motion. There is mild spinal stenosis C4-5 and C5-C6. There is degenerative disc disease greatest C5-C6 and C6-7, spondylosis at the same levels. There is mild narrowing of the left C4-5 and C5-C6 neural foramina. Electronically signed by: Win Chilel MD (06/19/2017 4:10 PM) [id number]
--- NOTE | 2017-06-19 16:31 | RAD ---
MRI left brachial plexus without contrast HISTORY: Left arm weakness and paralysis TECHNIQUE: Multiplanar, multi sequential noncontrast MR imaging was obtained of the left brachial plexus. COMPARISON: None FINDINGS: There is motion degradation. There is also incomplete fat suppression which limits exam.There are level 2 nodes bilaterally which are considered somewhat enlarged, up to 1.4 cm short axis dimension bilaterally. There is nonspecific relative prominence of the tonsils bilaterally. No obvious mass is identified along the course of the left brachial plexus. IMPRESSION: 1. No obvious mass is identified along the visualized portion of the left brachial plexus, exam degraded by motion and incomplete fat suppression. 2. There are nonspecific somewhat enlarged bilateral level 2 lymph nodes for which clinical follow-up advised. Electronically signed by: Win Chilel MD (06/19/2017 4:28 PM) [facility] [id number]
[2017-06-19 19:45] VITALS: BP 158/88
[2017-06-19] MEDS: ACETAMINOPHEN 325 MG TABLET. PO PRN (20:26)
[2017-06-19] MEDS ORDERED: ATORVASTATIN CALCIUM 20 MG TABLET PO SCH (21:00)
[2017-06-19 23:15] VITALS: BP 157/97
[2017-06-20 03:24] VITALS: BP 178/88
[2017-06-20 06:16] LABS: BASO # 0.1 x10^3/uL (0.0-0.2); BASO % 1 % (0-3); EOS % 2 % (0-3); HEMATOCRIT 43.4 % (39.0-53.0); HEMOGLOBIN 14.2 g/dL (13.0-17.5); LYMPH # 3.5 x10^3/uL (1.0-4.8); LYMPH % 31 % (24-48); MEAN CORPUSCULAR HEMOGLOBIN 29 pg (25-35); MEAN CORPUSCULAR HGB CONC 33 g/dL (31-37); MEAN CORPUSCULAR VOLUME 87 fL (79-100); MONO % 9 % (0-9); NEUT % 58 % (31-73); PLATELET COUNT 288 x10^3/uL (140-400); RED BLOOD COUNT 4.97 x10^6/uL (4.30-5.70); WHITE BLOOD COUNT 11.1 x10^3/uL (4.0-11.0)
[2017-06-20] MEDS: IV NORMAL SALINE 1000ML BAG 1,000 ML IV SCH (06:20)
[2017-06-20 06:27] LABS: CALCIUM 8.6 mg/dL (8.5-10.1); CREATININE 0.9 mg/dL (0.7-1.3); GFR 102.8
[2017-06-20 06:39] LABS: CHOLESTEROL/HDL RATIO 4.7
[2017-06-20 07:04] VITALS: BP 138/84
[2017-06-20] MEDS: ASPIRIN ENTERIC COATED 325 MG TABLET.DR. PO SCH (08:00)
[2017-06-20] MEDS: ATENOLOL 50 MG TABLET. PO SCH (08:12)
[2017-06-20] MEDS: CHLORTHALIDONE 25 MG TABLET. PO SCH (08:12)
[2017-06-20] MEDS: ENOXAPARIN 40 MG/0.4 ML SYRINGE. SQ SCH (08:13)
[2017-06-20] MEDS: AMOXICILLIN/K CLAV 875/125MG TABLET. PO SCH (08:13)
[2017-06-20] MEDS: ACETAMINOPHEN 325 MG TABLET. PO PRN (08:14)
--- NOTE | 2017-06-20 08:33 | PDOC ---
PROGRESS NOTES Subjective Subjective Patient without complaint, wants to go home. No change in left hand weakness. Objective Objective Vital Signs Date Time Temp Pulse Resp B/P (MAP) Pulse Ox O2 Delivery O2 Flow Rate FiO2 06/20/17 08:12 66 138/84 06/20/17 08:00 Room Air 06/20/17 07:04 97.6 20 96 97.6 Intake and Output 06/20/17 07:00 Intake Total 1800 ml Output Total 500 ml Balance 1300 ml Intake Oral 800 ml IV Total 1000 ml Output Urine Total 500 ml # Voids 2 Physical Exam Abdomen: Normal bowel sounds, Soft, No tenderness Heart: Regular rate Extremities: No edema General: Alert, Oriented X3, No acute distress Lungs: Other (BS decreased throughout but otherwise CTA) Neuro: Other (left hand weakness unchanged) Assessment Assessment Problems Medical Problems: (1) CVA (cerebral vascular accident) Status: Acute (2) Left arm numbness Status: Acute (3) Left arm weakness Status: Acute Plan Plan of Care 1. CVA - MRI shows several sub-acute infarcts and multiple previous infarcts. Results discussed with patient and his . Importance of controlling risk factors discussed. Patient strongly advised meds daily. Home today after being seen by Neurology and therapies, will need outpatient OT. 2. HTN - resume home meds tomorrow, have been holding them due to CVA protocol. Echo showed preserved EF but mild LVH and diastolic dysfunction. Patient advised this is from uncontrolled HTN and he needs to take his blood pressure meds daily to prevent further damage. 3. hyperlipidemia - lab shows lipids mildly elevated, patient to take statin daily and dose can be adjusted as outpatient. 4. glucose intolerance - A1C mildly elevated at 5.7 Attention to diet and exercise advised. 5. mastoiditis - seen again on MRI. Home on 14 days of Augmentin. 6. tobaccoism - smoking cessation discussed, patient considering. Comment Review of Relevant I have reviewed the following items ivette (where applicable) has been applied. Labs Laboratory Tests Test 06/19/17 02:00 06/20/17 05:43 White Blood Count 12.4 x10^3/uL (4.0-11.0) 11.1 x10^3/uL (4.0-11.0) Red Blood Count 4.96 x10^6/uL (4.30-5.70) 4.97 x10^6/uL (4.30-5.70) Hemoglobin 14.1 g/dL (13.0-17.5) 14.2 g/dL (13.0-17.5) Hematocrit 43.4 % (39.0-53.0) 43.4 % (39.0-53.0) Mean Corpuscular Volume 88 fL (79-100) 87 fL (79-100) Mean Corpuscular Hemoglobin 28 pg (25-35) 29 pg (25-35) Mean Corpuscular Hemoglobin Concent 33 g/dL (31-37) 33 g/dL (31-37) Red Cell Distribution Width 15.9 % (11.5-14.5) 16.0 % (11.5-14.5) Platelet Count 317 x10^3/uL (140-400) 288 x10^3/uL (140-400) Neutrophils (%) (Auto) 62 % (31-73) 58 % (31-73) Lymphocytes (%) (Auto) 27 % (24-48) 31 % (24-48) Monocytes (%) (Auto) 8 % (0-9) 9 % (0-9) Eosinophils (%) (Auto) 2 % (0-3) 2 % (0-3) Basophils (%) (Auto) 1 % (0-3) 1 % (0-3) Neutrophils # (Auto) 7.7 x10^3uL (1.8-7.7) 6.4 x10^3uL (1.8-7.7) Lymphocytes # (Auto) 3.3 x10^3/uL (1.0-4.8) 3.5 x10^3/uL (1.0-4.8) Monocytes # (Auto) 1.0 x10^3/uL (0.0-1.1) 1.0 x10^3/uL (0.0-1.1) Eosinophils # (Auto) 0.3 x10^3/uL (0.0-0.7) 0.2 x10^3/uL (0.0-0.7) Basophils # (Auto) 0.1 x10^3/uL (0.0-0.2) 0.1 x10^3/uL (0.0-0.2) Prothrombin Time 12.5 SEC (11.7-14.0) Prothromb Time International Ratio 1.0 (0.8-1.1) Activated Partial Thromboplast Time 27 SEC (24-38) Sodium Level 140 mmol/L (136-145) 140 mmol/L (136-145) Potassium Level 4.2 mmol/L (3.5-5.1) 4.0 mmol/L (3.5-5.1) Chloride Level 104 mmol/L (98-107) 106 mmol/L (98-107) Carbon Dioxide Level 27 mmol/L (21-32) 27 mmol/L (21-32) Anion Gap 9 (6-14) 7 (6-14) Blood Urea Nitrogen 14 mg/dL (8-26) 12 mg/dL (8-26) Creatinine 1.3 mg/dL (0.7-1.3) 0.9 mg/dL (0.7-1.3) Estimated GFR (Cockcroft-Gault) 67.2 102.8 BUN/Creatinine Ratio 11 (6-20) Glucose Level 121 mg/dL (70-99) 93 mg/dL (70-99) Hemoglobin A1c 5.7 % (4.8-5.6) Calcium Level 9.0 mg/dL (8.5-10.1) 8.6 mg/dL (8.5-10.1) Total Bilirubin 0.2 mg/dL (0.2-1.0) Aspartate Amino Transf (AST/SGOT) 18 U/L (15-37) Alanine Aminotransferase (ALT/SGPT) 28 U/L (16-63) Alkaline Phosphatase 70 U/L (46-116) Total Protein 7.7 g/dL (6.4-8.2) Albumin 3.3 g/dL (3.4-5.0) Albumin/Globulin Ratio 0.8 (1.0-1.7) Triglycerides Level 137 mg/dL (0-150) Cholesterol Level 201 mg/dL (0-200) LDL Cholesterol, Calculated 131 mg/dL (0-100) VLDL Cholesterol, Calculated 27 mg/dL (0-40) Non-HDL Cholesterol Calculated 158 mg/dL (0-129) HDL Cholesterol 43 mg/dL (40-60) Cholesterol/HDL Ratio 4.7 Laboratory Tests Test 06/20/17 05:43 White Blood Count 11.1 x10^3/uL (4.0-11.0) Red Blood Count 4.97 x10^6/uL (4.30-5.70) Hemoglobin 14.2 g/dL (13.0-17.5) Hematocrit 43.4 % (39.0-53.0) Mean Corpuscular Volume 87 fL (79-100) Mean Corpuscular Hemoglobin 29 pg (25-35) Mean Corpuscular Hemoglobin Concent 33 g/dL (31-37) Red Cell Distribution Width 16.0 % (11.5-14.5) Platelet Count 288 x10^3/uL (140-400) Neutrophils (%) (Auto) 58 % (31-73) Lymphocytes (%) (Auto) 31 % (24-48) Monocytes (%) (Auto) 9 % (0-9) Eosinophils (%) (Auto) 2 % (0-3) Basophils (%) (Auto) 1 % (0-3) Neutrophils # (Auto) 6.4 x10^3uL (1.8-7.7) Lymphocytes # (Auto) 3.5 x10^3/uL (1.0-4.8) Monocytes # (Auto) 1.0 x10^3/uL (0.0-1.1) Eosinophils # (Auto) 0.2 x10^3/uL (0.0-0.7) Basophils # (Auto) 0.1 x10^3/uL (0.0-0.2) Sodium Level 140 mmol/L (136-145) Potassium Level 4.0 mmol/L (3.5-5.1) Chloride Level 106 mmol/L (98-107) Carbon Dioxide Level 27 mmol/L (21-32) Anion Gap 7 (6-14) Blood Urea Nitrogen 12 mg/dL (8-26) Creatinine 0.9 mg/dL (0.7-1.3) Estimated GFR (Cockcroft-Gault) 102.8 Glucose Level 93 mg/dL (70-99) Calcium Level 8.6 mg/dL (8.5-10.1) Triglycerides Level 137 mg/dL (0-150) Cholesterol Level 201 mg/dL (0-200) LDL Cholesterol, Calculated 131 mg/dL (0-100) VLDL Cholesterol, Calculated 27 mg/dL (0-40) Non-HDL Cholesterol Calculated 158 mg/dL (0-129) HDL Cholesterol 43 mg/dL (40-60) Cholesterol/HDL Ratio 4.7 Medications Current Medications Aspirin (Children'S Aspirin) 162 mg 1X ONCE PO Last administered on 06/19/17 03:20; Start 06/19/17 at 03:30; Stop 06/19/17 at 03:31; Status DC Ondansetron HCl (Zofran) 4 mg PRN Q8HRS PRN IV NAUSEA/VOMITING; Start 06/19/17 at 03:45; Stop 06/20/17 at 03:44; Status DC Pneumococcal Polyvalent Vaccine (Do NOT chart on this placeholder) 1 each 1X ONCE MC ; Start 06/19/17 at 05:45; Stop 06/19/17 at 05:46; Status UNV Pneumococcal Polyvalent Vaccine (Pneumovax 23) 0.5 ml ONCE ONCE VAX IM Last administered on 06/19/17 08:56; Start 06/19/17 at 09:00; Stop 06/19/17 at 09:01 ; Status DC Aspirin (Ecotrin) 81 mg DAILY PO ; Start 06/19/17 at 09:00; Status UNV Non-Formulary Medication 1 tab DAILY PO ; Start 06/19/17 at 09:00; Status UNV Non-Formulary Medication 1 tab DAILY PO ; Start 06/19/17 at 09:00; Status UNV Sodium Chloride (Normal Saline Flush) 3 ml QSHIFT PRN IV AFTER MEDS AND BLOOD DRAWS; Start 06/19/17 at 09:00 Sodium Chloride 1,000 ml @ 100 mls/hr Q10H IV Last administered on 06/20/17 06:20; Start 06/19/17 at 09:30 Aspirin (Ecotrin) 325 mg DAILYWBKFT PO Last administered on 06/20/17 08:00; Start 06/19/17 at 09:30 Atorvastatin Calcium (Lipitor) 20 mg QHS PO Last administered on 06/19/17 20: 26; Start 06/19/17 at 21:00 Labetalol HCl (Normodyne) 10 mg PRN Q10MIN PRN IV HYPERTENSION, SEE COMMENTS; Start 06/19/17 at 09:30 Acetaminophen (Tylenol) 650 mg PRN Q6HRS PRN PO FEVER Last administered on 06/20 08:14; Start 06/19/17 at 09:30 Acetaminophen (Acetaminophen Supp) 650 mg PRN Q6HRS PRN NE FEVER; Start at 09:00 Enoxaparin Sodium (Lovenox 40mg Syringe) 40 mg Q24H SQ Last administered on 08:13; Start 06/19/17 at 10:00 Amoxicillin/ Clavulanate Potassium (Augmentin 875/ 125mg) 1 tab BID PO Last administered on 06/20/17 08:13; Start 06/19/17 at 09:30 Atenolol (Tenormin) 50 mg DAILY PO ; Start 06/19/17 at 09:30 Chlorthalidone (Thalitone) 25 mg DAILY PO ; Start 06/19/17 at 09:30 Active Scripts Active Atenolol-Chlorthal 50-25 Tb (Atenolol/Chlorthalidone) 1 Each Tablet 1 Tab PO DAILY Aspir 81 (Aspirin) 81 Mg Tablet.dr 1 Tab PO DAILY Atorvastatin Calcium 80 Mg Tablet 1 Tab PO DAILY Vitals/I & O Vital Sign - Last 24 Hours 06/19/17 06/19/17 06/19/17 06/19/17 09:30 10:37 19:45 20:05 Temp 97.7 98.6 97.7 98.6 Pulse 58 58 64 Resp 18 20 B/P (MAP) 147/88 147/88 (107) 158/88 (111) Pulse Ox 98 98 O2 Delivery Room Air Room Air Room Air 06/19/17 06/20/17 06/20/17 06/20/17 23:15 03:24 07:04 08:00 Temp 98.5 98.1 97.6 98.5 98.1 97.6 Pulse 65 59 66 Resp 20 20 20 B/P (MAP) 157/97 (117) 178/88 (118) 138/84 (102) Pulse Ox 98 98 96 O2 Delivery Room Air Room Air Room Air Room Air 06/20/17 08:12 Pulse 66 B/P (MAP) 138/84 Intake and Output 06/19/17 06/19/17 06/20/17 15:00 23:00 07:00 Intake Total 600 ml 1200 ml Output Total 200 ml 300 ml Balance -200 ml 300 ml 1200 ml MELANI ROWE MD Jun 20, 2017 08:33
[2017-06-20] MEDS ORDERED: ASPI325T11 PO (08:36)
[2017-06-20] MEDS ORDERED: AMOX1TAB11 PO (08:36)
--- NOTE | 2017-06-20 09:55 | DS ---
DATE OF DISCHARGE: 06/20/2017 CHIEF COMPLAINT: Left hand weakness. HISTORY OF PRESENT ILLNESS: The patient is a 66-year-old male who presented to the Emergency Room with the above complaint. He reported the onset of symptoms earlier on the evening prior to admission. He noticed that he was suddenly unable to hold the cup in his left hand. He actually dropped it and had no movement in the hand at all. This weakness persisted, but did not worsen or spread and he came to the Emergency Room. Initial evaluation there showed significant weakness in the left hand only. A CT of the head without contrast did not show acute hemorrhage. The patient was given an aspirin and admitted for further treatment. HOSPITAL COURSE: The patient was admitted and placed on telemetry, where he remained in sinus rhythm. He was seen in consultation by Dr. Rios. The weakness in his left hand persisted during his hospital stay. MRI of the brain showed several early subacute infarcts in the right cerebral hemisphere, multiple old lacunar infarcts were also seen, and there was evidence of chronic microvascular ischemic disease, right-sided mastoiditis was also shown. Carotid Dopplers showed only mild plaquing. MRI of the cervical spine showed mild degenerative disk and degenerative joint disease. Brachial plexus MRI was basically unremarkable. Echocardiogram showed a preserved ejection fraction of 55% with mild left ventricular hypertrophy and mild diastolic dysfunction. These findings were all discussed with the patient. He admitted that he had not been taking any of his medications daily, including the aspirin. He also has a long smoking history. The importance of controlling his risk factors to prevent further strokes was discussed with him and he appears to understand the importance of this. He will be seen by physical and occupational therapy today and it is anticipated he will need outpatient occupational therapy. Fasting lipids showed a total cholesterol of 201, LDL of 131 and an HDL of 43. The patient had been taking his statin intermittently. He is advised to take it daily and his dose can be adjusted as an outpatient. The patient had mild elevation of his glucose, an A1c was 5.7 indicating some mild glucose intolerances present. The patient does have a strong family history of diabetes. He is advised to decrease the sugar and starches in his diet. The patient had complained of right ear pain and he was seen to have mastoiditis with also mild sinusitis on the MRI. He was started on Augmentin and will continue this for 14 days treatment. The patient will be discharged home today after being seen by therapies and Neurology. The importance of smoking cessation was discussed with the patient on several occasions. He is considering working towards this, but is not ready to commit to cessation at this time. DISCHARGE DIAGNOSES: 1. Cerebrovascular accident. 2. Hypertension. 3. Hyperlipidemia. 4. Glucose intolerance. 5. Mastoiditis. 6. Tobaccoism. 7. Mild left ventricular hypertrophy with mild diastolic dysfunction and preserved ejection fraction. DISCHARGE MEDICATIONS: Aspirin 325 mg daily, Augmentin 875 one p.o. b.i.d. x 14 days, atenolol/chlorthalidone 50/25 one daily, atorvastatin 80 mg daily. The patient received a Pneumovax 23 during his hospital stay. FOLLOWUP: With Dr. Patel within 2 weeks. Follow up with Neurology as advised. MELANI ROWE MD DR: YARI/kartik JOB#: [id number] / [id number]
[2017-06-20 10:31] VITALS: BP 134/85
--- NOTE | 2017-06-20 12:37 | PDOC ---
PROGRESS NOTES Assessment Problems Medical Problems: (1) CVA (cerebral vascular accident) Status: Acute (2) Left arm numbness Status: Acute (3) Left arm weakness Status: Acute Multiple right hemispheric strokes explainable on the basis of small-vessel ischemic disease, but we need to keep emboli in mind. Negative workup for this, though.Unusual presentation with monoparesis Plan Home on aspirin, statin, blood pressure medication, and advised smoking cessation Outpatient rehabilitation Follow-up with neurology as needed. Subjective Feeling better, no new complaints Objective Vital Signs Date Time Temp Pulse Resp B/P (MAP) Pulse Ox O2 Delivery O2 Flow Rate FiO2 06/20/17 10:31 98.1 65 20 134/85 (101) 98 Room Air 98.1 Intake and Output 06/20/17 06:59 Intake Total 1800 ml Output Total 500 ml Balance 1300 ml Intake Oral 800 ml IV Total 1000 ml Output Urine Total 500 ml # Voids 2 Review of Relevant I have reviewed the following items ivette (where applicable) has been applied. Labs Laboratory Tests Test 06/19/17 02:00 06/20/17 05:43 White Blood Count 12.4 x10^3/uL (4.0-11.0) 11.1 x10^3/uL (4.0-11.0) Red Blood Count 4.96 x10^6/uL (4.30-5.70) 4.97 x10^6/uL (4.30-5.70) Hemoglobin 14.1 g/dL (13.0-17.5) 14.2 g/dL (13.0-17.5) Hematocrit 43.4 % (39.0-53.0) 43.4 % (39.0-53.0) Mean Corpuscular Volume 88 fL (79-100) 87 fL (79-100) Mean Corpuscular Hemoglobin 28 pg (25-35) 29 pg (25-35) Mean Corpuscular Hemoglobin Concent 33 g/dL (31-37) 33 g/dL (31-37) Red Cell Distribution Width 15.9 % (11.5-14.5) 16.0 % (11.5-14.5) Platelet Count 317 x10^3/uL (140-400) 288 x10^3/uL (140-400) Neutrophils (%) (Auto) 62 % (31-73) 58 % (31-73) Lymphocytes (%) (Auto) 27 % (24-48) 31 % (24-48) Monocytes (%) (Auto) 8 % (0-9) 9 % (0-9) Eosinophils (%) (Auto) 2 % (0-3) 2 % (0-3) Basophils (%) (Auto) 1 % (0-3) 1 % (0-3) Neutrophils # (Auto) 7.7 x10^3uL (1.8-7.7) 6.4 x10^3uL (1.8-7.7) Lymphocytes # (Auto) 3.3 x10^3/uL (1.0-4.8) 3.5 x10^3/uL (1.0-4.8) Monocytes # (Auto) 1.0 x10^3/uL (0.0-1.1) 1.0 x10^3/uL (0.0-1.1) Eosinophils # (Auto) 0.3 x10^3/uL (0.0-0.7) 0.2 x10^3/uL (0.0-0.7) Basophils # (Auto) 0.1 x10^3/uL (0.0-0.2) 0.1 x10^3/uL (0.0-0.2) Prothrombin Time 12.5 SEC (11.7-14.0) Prothromb Time International Ratio 1.0 (0.8-1.1) Activated Partial Thromboplast Time 27 SEC (24-38) Sodium Level 140 mmol/L (136-145) 140 mmol/L (136-145) Potassium Level 4.2 mmol/L (3.5-5.1) 4.0 mmol/L (3.5-5.1) Chloride Level 104 mmol/L (98-107) 106 mmol/L (98-107) Carbon Dioxide Level 27 mmol/L (21-32) 27 mmol/L (21-32) Anion Gap 9 (6-14) 7 (6-14) Blood Urea Nitrogen 14 mg/dL (8-26) 12 mg/dL (8-26) Creatinine 1.3 mg/dL (0.7-1.3) 0.9 mg/dL (0.7-1.3) Estimated GFR (Cockcroft-Gault) 67.2 102.8 BUN/Creatinine Ratio 11 (6-20) Glucose Level 121 mg/dL (70-99) 93 mg/dL (70-99) Hemoglobin A1c 5.7 % (4.8-5.6) Calcium Level 9.0 mg/dL (8.5-10.1) 8.6 mg/dL (8.5-10.1) Total Bilirubin 0.2 mg/dL (0.2-1.0) Aspartate Amino Transf (AST/SGOT) 18 U/L (15-37) Alanine Aminotransferase (ALT/SGPT) 28 U/L (16-63) Alkaline Phosphatase 70 U/L (46-116) Total Protein 7.7 g/dL (6.4-8.2) Albumin 3.3 g/dL (3.4-5.0) Albumin/Globulin Ratio 0.8 (1.0-1.7) Triglycerides Level 137 mg/dL (0-150) Cholesterol Level 201 mg/dL (0-200) LDL Cholesterol, Calculated 131 mg/dL (0-100) VLDL Cholesterol, Calculated 27 mg/dL (0-40) Non-HDL Cholesterol Calculated 158 mg/dL (0-129) HDL Cholesterol 43 mg/dL (40-60) Cholesterol/HDL Ratio 4.7 Laboratory Tests Test 06/20/17 05:43 White Blood Count 11.1 x10^3/uL (4.0-11.0) Red Blood Count 4.97 x10^6/uL (4.30-5.70) Hemoglobin 14.2 g/dL (13.0-17.5) Hematocrit 43.4 % (39.0-53.0) Mean Corpuscular Volume 87 fL (79-100) Mean Corpuscular Hemoglobin 29 pg (25-35) Mean Corpuscular Hemoglobin Concent 33 g/dL (31-37) Red Cell Distribution Width 16.0 % (11.5-14.5) Platelet Count 288 x10^3/uL (140-400) Neutrophils (%) (Auto) 58 % (31-73) Lymphocytes (%) (Auto) 31 % (24-48) Monocytes (%) (Auto) 9 % (0-9) Eosinophils (%) (Auto) 2 % (0-3) Basophils (%) (Auto) 1 % (0-3) Neutrophils # (Auto) 6.4 x10^3uL (1.8-7.7) Lymphocytes # (Auto) 3.5 x10^3/uL (1.0-4.8) Monocytes # (Auto) 1.0 x10^3/uL (0.0-1.1) Eosinophils # (Auto) 0.2 x10^3/uL (0.0-0.7) Basophils # (Auto) 0.1 x10^3/uL (0.0-0.2) Sodium Level 140 mmol/L (136-145) Potassium Level 4.0 mmol/L (3.5-5.1) Chloride Level 106 mmol/L (98-107) Carbon Dioxide Level 27 mmol/L (21-32) Anion Gap 7 (6-14) Blood Urea Nitrogen 12 mg/dL (8-26) Creatinine 0.9 mg/dL (0.7-1.3) Estimated GFR (Cockcroft-Gault) 102.8 Glucose Level 93 mg/dL (70-99) Calcium Level 8.6 mg/dL (8.5-10.1) Triglycerides Level 137 mg/dL (0-150) Cholesterol Level 201 mg/dL (0-200) LDL Cholesterol, Calculated 131 mg/dL (0-100) VLDL Cholesterol, Calculated 27 mg/dL (0-40) Non-HDL Cholesterol Calculated 158 mg/dL (0-129) HDL Cholesterol 43 mg/dL (40-60) Cholesterol/HDL Ratio 4.7 Medications Current Medications Aspirin (Children'S Aspirin) 162 mg 1X ONCE PO Last administered on 06/19/17t 03:20; Start 06/19/17 at 03:30; Stop 06/19/17 at 03:31; Status DC Ondansetron HCl (Zofran) 4 mg PRN Q8HRS PRN IV NAUSEA/VOMITING; Start 06/19/17 at 03:45; Stop 06/20/17 at 03:44; Status DC Pneumococcal Polyvalent Vaccine (Do NOT chart on this placeholder) 1 each 1X ONCE MC ; Start 06/19/17 at 05:45; Stop 06/19/17 at 05:46; Status UNV Pneumococcal Polyvalent Vaccine (Pneumovax 23) 0.5 ml ONCE ONCE VAX IM Last administered on 06/19/17 08:56; Start 06/19/17 at 09:00; Stop 06/19/17 at 09:01 ; Status DC Aspirin (Ecotrin) 81 mg DAILY PO ; Start 06/19/17 at 09:00; Status UNV Non-Formulary Medication 1 tab DAILY PO ; Start 06/19/17 at 09:00; Status UNV Non-Formulary Medication 1 tab DAILY PO ; Start 06/19/17 at 09:00; Status UNV Sodium Chloride (Normal Saline Flush) 3 ml QSHIFT PRN IV AFTER MEDS AND BLOOD DRAWS; Start 06/19/17 at 09:00 Sodium Chloride 1,000 ml @ 100 mls/hr Q10H IV Last administered on 06/20/17 06:20; Start 06/19/17 at 09:30; Stop 06/20/17 at 08:35; Status DC Aspirin (Ecotrin) 325 mg DAILYWBKFT PO Last administered on 06/20/17 08:00; Start 06/19/17 at 09:30 Atorvastatin Calcium (Lipitor) 20 mg QHS PO Last administered on 06/19/17 20: 26; Start 06/19/17 at 21:00 Labetalol HCl (Normodyne) 10 mg PRN Q10MIN PRN IV HYPERTENSION, SEE COMMENTS; Start 06/19/17 at 09:30 Acetaminophen (Tylenol) 650 mg PRN Q6HRS PRN PO FEVER Last administered on 06/20 08:14; Start 06/19/17 at 09:30 Acetaminophen (Acetaminophen Supp) 650 mg PRN Q6HRS PRN [place] FEVER; Start at 09:00 Enoxaparin Sodium (Lovenox 40mg Syringe) 40 mg Q24H SQ Last administered on 08:13; Start 06/19/17 at 10:00 Amoxicillin/ Clavulanate Potassium (Augmentin 875/ 125mg) 1 tab BID PO Last administered on 06/20/17 08:13; Start 06/19/17 at 09:30 Atenolol (Tenormin) 50 mg DAILY PO ; Start 06/19/17 at 09:30 Chlorthalidone (Thalitone) 25 mg DAILY PO ; Start 06/19/17 at 09:30 Active Scripts Active Aspirin Ec (Aspirin) 325 Mg Tablet. 325 Mg PO DAILYWBKFT 30 Days Amox Tr-K Clv 875-125 Mg Tab (Amoxicillin/Potassium Clav) 1 Each Tablet 1 Tab PO BID 14 Days Atenolol-Chlorthal 50-25 Tb (Atenolol/Chlorthalidone) 1 Each Tablet 1 Tab PO DAILY Atorvastatin Calcium 80 Mg Tablet 1 Tab PO DAILY Vitals/I & O Vital Sign - Last 24 Hours 06/19/17 06/19/17 06/19/17 06/20/17 19:45 20:05 23:15 03:24 Temp 98.6 98.5 98.1 98.6 98.5 98.1 Pulse 64 65 59 Resp 20 20 20 B/P (MAP) 158/88 (111) 157/97 (117) 178/88 (118) Pulse Ox 98 98 98 O2 Delivery Room Air Room Air Room Air Room Air 06/20/17 06/20/17 06/20/17 06/20/17 07:04 08:00 08:12 10:31 Temp 97.6 98.1 97.6 98.1 Pulse 66 66 65 Resp 20 20 B/P (MAP) 138/84 (102) 138/84 134/85 (101) Pulse Ox 96 98 O2 Delivery Room Air Room Air Room Air Intake and Output 06/19/17 06/19/17 06/20/17 14:59 22:59 06:59 Intake Total 600 ml 1200 ml Output Total 200 ml 300 ml Balance -200 ml 300 ml 1200 ml Images MRI brain: Findings: There is mild motion. There is some patchy foci of restricted diffusion of the right frontal parietal lobes with cortical involvement, also more posteriorly of the right parietal lobe involving the white matter. There is also a very small focus of the right occipital lobe. There are also a couple small foci of the right centrum semiovale. There is variable mild corresponding T2 and FLAIR hyperintense signal of the largest areas of restricted diffusion. There is large old lacunar infarct of the left bessie, also of the right thalamus, small focus of the left thalamus, other foci of the bilateral basal ganglia and centrum semiovale, and small focus left periatrial white matter. There are multiple other foci of T2 and FLAIR hyperintense abnormality of the supratentorial white matter bilaterally, minimally of the bessie. There is no midline shift or extra-axial fluid collection. Ventricular size is within normal limits. There is some hemosiderin deposition associated with the left basal ganglia, also couple of small foci of old microhemorrhage of the left parietal lobe. There is preservation of the major arterial intracranial flow voids at the skull base. There is severe fluid and thickening of the right mastoid air cells, mild thickening diffusely on the left. There is patchy very mild ethmoid air cell and frontal sinus mucosal thickening. Cerebellar tonsils are normal in location. There is preservation of marrow signal of the clivus. There is no significant abnormality of the pineal gland or pituitary gland. Impression: 1. There are scattered foci of early subacute infarcts of the right cerebral hemisphere greatest of the right frontal parietal lobes. 2. There are multiple old lacunar infarcts as stated. There is old hemorrhage/hemosiderin deposition of the left basal ganglia. Other multifocal T2 and FLAIR hyperintense abnormality is probably due to chronic microvascular ischemic disease. 3. There is prominent fluid of the right mastoid air cells of uncertain sterility, diffuse thickening on the left. MRI cervical spine, brachial plexus, carotid Doppler's, echocardiogram reviewed JASPREET SOLIS MD Jun 20, 2017 12:37
--- NOTE | 2017-06-21 00:02 | ACF ---
Admission Forms Criteria TELEMETRY CARE Telemetry Admission Guidelines (Place 'X' for any and all applicable criteria): Admission to telemetry [A] may be indicated for ANY ONE of the following(1)(2)(3 )(4)(5): [ ]I. Cardiac disease, including ANY ONE of the following (9)(10)(11)(12)(13 ): [ ]a) Postacute NH [ ]b) Low-risk patients with ST-segment elevation NH who have undergone successful percutaneous coronary intervention [ ]c) Unstable angina [ ]d) Suspected NH (until it is ruled out) [ ]e) Post cardiac surgery (first 48 to 72 hours unless complications occur) [ ]f) Acute arrhythmias (including significant tachycardia or bradycardia) [B] [ ]g) Firing of an implantable cardioverter defibrillator [C] [ ]h) Suspected pacemaker or implantable cardioverter defibrillator malfunction (10) [ ]i) New administration or adjustment of an antiarrhythmic drug [D ] [ ]j) Child admitted for acute congestive heart failure [ ]j) Long QT syndrome [ ]k) Advanced heart block (eg, second-degree Mobitz type II, third- degree heart block) [ ]l) Acute myocarditis or pericarditis [ ]m) Short-term (ambulatory or inpatient) monitoring after a cardiac procedure as indicated by ANY ONE of the following [E]: [ ]i) Electrophysiologic studies [ ]ii) Percutaneous coronary intervention with stent placement [ ]iii) Pacemaker placement with cardiac conduction defect [ ]iv) Implantable cardiac defibrillator placement [ ]II. Drug overdose or poisoning with substance that causes arrhythmias or QT prolongation (eg, phenothiazines, sympathomimetic agents, cyclic antidepressants, digitalis, antiarrhythmic drugs)(15) [ ]III. Short-term (ambulatory or inpatient) monitoring after therapeutic or diagnostic procedure requiring conscious sedation or anesthesia (eg, endoscopy, elective cardioversion) [X]IV. Acute cerebrovascular even[F](18) [ ]V. Massive blood transfusion (eg, at least 10 units of packed red blood cells in 24 hours) [ ]. Variceal bleeding after endoscopy, sclerotherapy, or IV vasopressin [ ]VII. Uncorrected electrolyte abnormalities associated with an increased risk of dangerous arrhythmia [G]; examples include [ ]a) Hyperkalemia with attributable ECG changes [ ]b) Potassium greater than 6.5 mmol/L (mEq/L) in a patient without history of chronic renal disease [ ]c) Prolonged QT attributed to hypokalemia, hypomagnesemia, or hypocalcemia [ ]VIII.Unexplained syncope or other neurologic event suspected of being due to arrhythmia due to a finding that increases risk; examples include(19)(20)(21): [ ]a) High-risk ECG findings (eg, bifascicular block, bradycardia, abnormal QT interval, ventricular pre- excitation) [ ]b) History of previous syncope due to arrhythmia [ ]c) Abnormal ventricular function (eg, reduced ejection fraction ) [ ]d) Exertional or supine syncope [ ]e) Concerning syncope characteristics (eg, sudden loss of consciousness without prodrome) [ ]f) Family history of sudden [ ]g) Use of arrhythmogenic medication [ ]h) Suspected cardiac ischemia [ ]i) Known channelopathy (eg, long QT syndrome, Brugada syndrome, or catecholaminergic paroxysmal ventricular tachycardia) [ ]j) Known structural heart disease (eg, hypertrophic cardiomyopathy , severe valvular disease) [ ]k) Palpitations preceding syncope The original [email or web address] content created by [email or web address] has been revised. The portions of the content which have been revised are identified through the use of italic text or in bold, and [facility] has neither reviewed nor approved the modified material. All other unmodified content is copyright [email or web address]. Please see references footnoted in the original [email or web address] edition 2016 Admission Criteria Met?: Yes MARILU PITTS Jun 21, 2017 00:02
== END 2017-06-20 13:44 | disposition home or self-care (01) | DRG 66 ==
LOC: ER 01:21 → 6 SOUTH 03:30
PROVIDERS: ADMIT Family Medicine; ATTEND Family Medicine
DX: I63.9 Cerebral infarction, unspecified (principal); I11.0 Hypertensive heart disease with heart failure; G83.24 Monoplegia of upper limb affecting left nondominant side; H70.90 Unspecified mastoiditis, unspecified ear; E55.9 Vitamin D deficiency, unspecified; R73.9 Hyperglycemia, unspecified; I51.7 Cardiomegaly; E74.39 Other disorders of intestinal carbohydrate absorption; E78.5 Hyperlipidemia, unspecified; E78.00 Pure hypercholesterolemia, unspecified; F12.90 Cannabis use, unspecified, uncomplicated; F17.210 Nicotine dependence, cigarettes, uncomplicated; Z82.3 Family history of stroke; Z83.3 Family history of diabetes mellitus; Z91.19 Patient's noncompliance with other medical treatment and regimen; Z87.01 Personal history of pneumonia (recurrent); Z88.8 Allergy status to other drugs, medicaments and biological substances; M19.90 Unspecified osteoarthritis, unspecified site
CPT/HCPCS: 36415; 70450; 70551; 71010; 71550; 72141; 80048; 80053; 80061; 83036; 85025; 85610; 85730; 90732; 93005; 93880; C8929; J1650; J7030; 92610; 99285-25

== ENCOUNTER 2018-05-14 13:15 | Emergency (ER) | payer BC ==
[2018-05-14] MEDS: IPRATRPIUM/ALBUTEROL 0.5/2.5MG 3 ML NEBU. NEB (14:02)
[2018-05-14 14:07] LABS: ADD MAN DIFF? NO
[2018-05-14 14:11] LABS: BASO # 0.1 x10^3/uL (0.0-0.2); BASO % 1 % (0-3); EOS # 0.1 x10^3/uL (0.0-0.7); EOS % 1 % (0-3); HEMATOCRIT 46.7 % (39.0-53.0); HEMOGLOBIN 15.2 g/dL (13.0-17.5); LYMPH # 2.2 x10^3/uL (1.0-4.8); LYMPH % 18 % (24-48); MEAN CORPUSCULAR HEMOGLOBIN 28 pg (25-35); MEAN CORPUSCULAR HGB CONC 33 g/dL (31-37); MEAN CORPUSCULAR VOLUME 86 fL (79-100); MONO # 0.8 x10^3/uL (0.0-1.1); MONO % 6 % (0-9); NEUT # 9.2 x10^3uL (1.8-7.7); NEUT % 74 % (31-73); PLATELET COUNT 284 x10^3/uL (140-400); RED BLOOD COUNT 5.42 x10^6/uL (4.30-5.70); RED CELL DISTRIBUTION WIDTH 15.5 % (11.5-14.5); WHITE BLOOD COUNT 12.4 x10^3/uL (4.0-11.0)
[2018-05-14] MEDS: methylPREDNISolone SOD SUCC PF 125 MG/2 ML VIAL. IV (14:12)
[2018-05-14 14:47] LABS: ANION GAP 6 (6-14); BLOOD UREA NITROGEN 13 mg/dL (8-26); BUN/CREATININE RATIO 11 (6-20); CARBON DIOXIDE 29 mmol/L (21-32); CHLORIDE 103 mmol/L (98-107); CREATININE 1.2 mg/dL (0.7-1.3); GFR 73.5; GLUCOSE 108 mg/dL (70-99); POTASSIUM 3.7 mmol/L (3.5-5.1); SODIUM 138 mmol/L (136-145)
[2018-05-14 14:53] LABS: ALBUMIN 3.5 g/dL (3.4-5.0); ALBUMIN/GLOBULIN RATIO 0.8 (1.0-1.7); ALK PHOS 69 U/L (46-116); ALT (SGPT) 39 U/L (16-63); AST (SGOT) 21 U/L (15-37); TOTAL BILIRUBIN 0.7 mg/dL (0.2-1.0); TOTAL PROTEIN 7.7 g/dL (6.4-8.2)
[2018-05-14 14:56] LABS: TROPONINI < 0.017 ng/mL (0.000-0.055)
[2018-05-14 15:01] LABS: CKMB INDEX 0.5 % (0-4); CKMB MASS 2.1 ng/mL (0.0-3.6); CREATINE KINASE 445 U/L (39-308)
== END 2018-05-14 15:42 | disposition home or self-care (01) ==
LOC: ER 13:15
DX: J44.9 Chronic obstructive pulmonary disease, unspecified (principal); I10 Essential (primary) hypertension; E78.00 Pure hypercholesterolemia, unspecified; F17.210 Nicotine dependence, cigarettes, uncomplicated; Z88.5 Allergy status to narcotic agent
CPT/HCPCS: 36415; 71045; 80053; 82553; 84484; 85025; 93005; 94640; 96374; 99285-25; J2930; J7620

== ENCOUNTER → 2019-12-17 | Outpatient (CLI) | payer BC ==
[2018-05-14 14:20] VITALS: BP 165/86
[~2019-12-17] MED LIST changes: +AMOX1TAB11 PO; +ASPI-482 PO; +ASPI325T11 PO; +ATEN1TAB3 PO; +ATORVASTATIN CA80 MG PO; +AZIT250T6 PO; +PRED20TA PO; +SIMV80TA17 PO; -SIMV80TA3 PO; +VENTOLIN HFA18 GM INH
--- NOTE | 2019-12-17 17:32 | RAD ---
EXAM: Left lower extremity venous Doppler. HISTORY: Left lower extremity pain/swelling. Cellulitis. COMPARISON: None. FINDINGS: Grayscale and Doppler analysis of the left lower extremity deep venous system was performed with graded compression and augmentation. The common femoral, greater saphenous, superficial femoral, popliteal and calf veins were assessed. There is no evidence of deep venous thrombosis. IMPRESSION: 1. No evidence of deep venous thrombosis. Electronically signed by: Araseli Barnett MD (12/17/2019 5:29 PM) [facility] [place]
== END | disposition home or self-care (01) ==
LOC: US 11:03
PROVIDERS: ATTEND Family Medicine
DX: L03.116 Cellulitis of left lower limb (principal)
CPT/HCPCS: 93971

== ENCOUNTER → 2020-01-14 | Outpatient (CLI) | payer BC ==
[2018-05-14 14:20] VITALS: BP 165/86
--- NOTE | 2020-01-14 13:15 | RAD ---
Indication: Leg pain TECHNIQUE: Indication: Leg pain Ultrasound was utilized to obtain a peak systolic velocity of the ankle and brachial arterial vasculature in order to calculate and ankle brachial index. Peak systolic velocities are measured in mm of mercury. Limited spectral Doppler ultrasound images are obtained of the dorsalis pedis and posterior tibial artery. RIGHT: Ankle: 152 Brachial: 128 PENG: 1.1 LEFT: Ankle: 170 Brachial: 134 PENG: 1.2 Plaque is seen in the dorsalis pedis and posterior tibial arteries with triphasic waveform IMPRESSION: Normal ankle brachial index bilaterally. Electronically signed by: Jonathan Roman MD (01/14/2020 1:12 PM) [id number]
== END | disposition home or self-care (01) ==
LOC: US 14:05
PROVIDERS: ATTEND Family Medicine
DX: I70.293 Other atherosclerosis of native arteries of extremities, bilateral legs (principal)
CPT/HCPCS: 93922

== ENCOUNTER 2020-02-02 12:49 | Emergency (ER) | payer BC ==
[~2020-02-02] VITALS: Ht 175.3 cm; Wt 112.0 kg
[2020-02-02] MEDS ORDERED: PIPERACILLIN/TAZOBACTAM 4.5 GM in IV NORMAL SALINE 100ML 100 ML IV ONE (13:30)
[2020-02-02] MEDS ORDERED: DIPH,PERTUSS(ACELL),TET VAC/PF 0.5 ML SYRINGE. VAX IM ONE (13:30)
[2020-02-02] MEDS ORDERED: MORPHINE SULFATE 4 MG/ML VIAL. IV/SQ PRN (13:30)
[2020-02-02] MEDS ORDERED: VANCOMYCIN PER PHARMACY MC ONE (13:30)
[2020-02-02] MEDS ORDERED: VANCOMYCIN 2 GM in IV NORMAL SALINE 500ML BAG 500 ML IV ONE (14:00)
[2020-02-02 14:03] LABS: BASO # 0.1 x10^3/uL (0.0-0.2); BASO % 1 % (0-3); EOS # 0.3 x10^3/uL (0.0-0.7); EOS % 3 % (0-3); HEMATOCRIT 42.1 % (39.0-53.0); HEMOGLOBIN 13.6 g/dL (13.0-17.5); LYMPH # 2.9 x10^3/uL (1.0-4.8); LYMPH % 30 % (24-48); MEAN CORPUSCULAR HEMOGLOBIN 28 pg (25-35); MEAN CORPUSCULAR HGB CONC 32 g/dL (31-37); MEAN CORPUSCULAR VOLUME 86 fL (79-100); MONO # 0.9 x10^3/uL (0.0-1.1); MONO % 10 % (0-9); NEUT # 5.5 x10^3/uL (1.8-7.7); NEUT % 57 % (31-73); PLATELET COUNT 314 x10^3/uL (140-400); RED BLOOD COUNT 4.93 x10^6/uL (4.30-5.70); RED CELL DISTRIBUTION WIDTH 15.6 % (11.5-14.5); WHITE BLOOD COUNT 9.7 x10^3/uL (4.0-11.0)
[2020-02-02 14:33] LABS: CALCIUM 8.8 mg/dL (8.5-10.1); CREATINE KINASE 108 U/L (39-308); CREATININE 1.1 mg/dL (0.7-1.3); GFR 80.8; POTASSIUM 3.7 mmol/L (3.5-5.1)
[2020-02-02 14:37] LABS: ALBUMIN 3.2 g/dL (3.4-5.0); ALBUMIN/GLOBULIN RATIO 0.8 (1.0-1.7); C-REACTIVE PROTEIN 12.9 mg/L (0-3.3); TOTAL BILIRUBIN 0.4 mg/dL (0.2-1.0); TOTAL PROTEIN 7.3 g/dL (6.4-8.2)
--- NOTE | 2020-02-02 15:10 | RAD ---
Left lower extremity venous ultrasound, : History: Swelling left lower extremity Duplex evaluation including grayscale, color flow and spectral Doppler analysis was performed. The femoral and popliteal veins show no filling defects to suggest DVT. The visualized calf veins are unremarkable. There is superficial edema in the anterior left calf. IMPRESSION: There is no sonographic evidence of deep vein thrombosis in the left lower extremity Electronically signed by: Chad Godinez MD (02/02/2020 3:04 PM) [id number]
--- NOTE | 2020-02-02 15:15 | RAD ---
Arterial Doppler left lower extremity. HISTORY: Left lower extremity swelling. Arterial Doppler study was performed, color imaging and spectral Doppler were utilized for evaluation of the blood flow to the left lower extremity. There is a mildly prominent lymph node at the groin. There is triphasic flow at the left common femoral artery with velocity 119 cm/s. There is biphasic flow in the left deep femoral artery with velocity of 43 cm/s. There is triphasic flow throughout in the mid and proximal left superficial femoral artery with a velocity of 100 cm per sec in the mid artery. Velocity in the popliteal artery decreases to 66 cm/s with monophasic pattern. There is monophasic flow in the left posterior tibial with velocity of 85 cm/s. Velocity in proximal left posterior tibial has a velocity of 57 cm/s. Velocity is triphasic in the anterior tibial with velocity of 66 cm/s. IMPRESSION: 1. Evidence of at least moderate distal superficial femoral artery stenosis with decreased velocity and changes to monophasic in the popliteal artery. The actual stenosis was not well demonstrated. Electronically signed by: Chad Godinez MD (02/02/2020 3:12 PM) [id number]
[2020-02-02] MEDS ORDERED: CLIN300C8 PO (16:08)
--- NOTE | 2020-02-02 16:08 | PHYS DOC ---
Past Medical History Past Medical History: High Cholesterol, Hypertension Past Surgical History: No Surgical History Smoking Status: Current Every Day Smoker Alcohol Use: Occasionally Drug Use: Marijuana General Adult EDM: Chief Complaint: LOWER EXTREMITY SWELLING HPI: HPI: Patient is a 69 year old male with history of high cholesterol, hypertension, who presents to the ED today complaining of left lower extremity swelling and some redness with warmth, symptoms began on November 29, 2019. Patient reports being seen by the PCP 3 times for this with no improvement. She states he was given a cream to apply to the area with no improvement. Denies any fever. Denies any injury. Review of Systems: Review of Systems: Constitutional: Denies fever or chills. [] Musculoskeletal: Reports left lower extremity swelling, redness. Integument: Denies rash. [] Neurologic: Denies headache, focal weakness or sensory changes. [] Lymphatic: Denies swollen glands. [] Psychiatric: Denies depression or anxiety. [] Heart Score: Risk Factors: Risk Factors: DM, Current or recent (<one month) smoker, HTN, HLP, family history of CAD, obesity. Risk Scores: Score 0 - 3: 2.5% MACE over next 6 weeks - Discharge Home Score 4 - 6: 20.3% MACE over next 6 weeks - Admit for Clinical Observation Score 7 - 10: 72.7% MACE over next 6 weeks - Early Invasive Strategies Current Medications: Current Medications Medications (Trade) Dose Ordered Sig/Tello Start Time Stop Time Status Last Admin Dose Admin Diphtheria/ Tetanus/Acell Pertussis (ADACEL TDap SYRINGE) 0.5 ml ONCE ONCE 02/02/20 13:30 02/02/20 13:34 DC 02/02/20 13:56 0.5 ML Morphine Sulfate (Morphine Sulfate) 4 mg PRN Q15MIN PRN 02/02/20 13:30 02/03/20 13:29 Piperacillin Sod/ Tazobactam Sod 4.5 gm/Sodium Chloride 100 ml @ 200 mls/hr 1X ONCE 02/02/20 13:30 02/02/20 13:59 DC 02/02/20 13:53 200 MLS/HR Vancomycin HCl (Vanco Per Pharmacy) 1 each 1X ONCE 02/02/20 13:30 02/02/20 14:20 DC Vancomycin HCl 2 gm/Sodium Chloride 500 ml @ 250 mls/hr 1X ONCE 02/02/20 14:00 02/02/20 15:59 02/02/20 14:32 250 MLS/HR Allergies: Allergies: Allergies Coded Allergies Type Severity Reaction Last Updated Verified naproxen Allergy Intermediate Hives 08/05/14 Yes Physical Exam: PE: Constitutional: Well developed, well nourished, no acute distress, non-toxic appearance. [] HENT: Normocephalic, atraumatic, bilateral external ears normal, oropharynx moist, no oral exudates, nose normal. [] Eyes: PERRLA, EOMI, conjunctiva normal, no discharge. [] Neck: Normal range of motion, no tenderness, supple, no stridor. [] Cardiovascular:Heart rate regular rhythm, no murmur [] Lungs & Thorax: Bilateral breath sounds clear to auscultation [] Abdomen: Bowel sounds normal, soft, no tenderness, no masses, no pulsatile masses. [] Skin: Warm, dry, no erythema, no rash. [] Back: No tenderness, no CVA tenderness. [] Extremities: No tenderness, no cyanosis, no clubbing, ROM intact, +2 edema noted on the left lower extremity area of skin peeling on the rodney. There is surrounding trace cellulitis to this region. This region feels warm. +1 left pedal pulse. Neurologic: Alert and oriented X 3, normal motor function, normal sensory function, no focal deficits noted. [] Psychologic: Affect normal, judgement normal, mood normal. [] Current Patient Data: Labs: Laboratory Tests Test 02/02/20 13:40 White Blood Count 9.7 x10^3/uL (4.0-11.0) Red Blood Count 4.93 x10^6/uL (4.30-5.70) Hemoglobin 13.6 g/dL (13.0-17.5) Hematocrit 42.1 % (39.0-53.0) Mean Corpuscular Volume 86 fL (79-100) Mean Corpuscular Hemoglobin 28 pg (25-35) Mean Corpuscular Hemoglobin Concent 32 g/dL (31-37) Red Cell Distribution Width 15.6 % (11.5-14.5) H Platelet Count 314 x10^3/uL (140-400) Neutrophils (%) (Auto) 57 % (31-73) Lymphocytes (%) (Auto) 30 % (24-48) Monocytes (%) (Auto) 10 % (0-9) H Eosinophils (%) (Auto) 3 % (0-3) Basophils (%) (Auto) 1 % (0-3) Neutrophils # (Auto) 5.5 x10^3/uL (1.8-7.7) Lymphocytes # (Auto) 2.9 x10^3/uL (1.0-4.8) Monocytes # (Auto) 0.9 x10^3/uL (0.0-1.1) Eosinophils # (Auto) 0.3 x10^3/uL (0.0-0.7) Basophils # (Auto) 0.1 x10^3/uL (0.0-0.2) Erythrocyte Sedimentation Rate 20 (0-15) H Sodium Level 139 mmol/L (136-145) Potassium Level 3.7 mmol/L (3.5-5.1) Chloride Level 104 mmol/L (98-107) Carbon Dioxide Level 28 mmol/L (21-32) Anion Gap 7 (6-14) Blood Urea Nitrogen 14 mg/dL (8-26) Creatinine 1.1 mg/dL (0.7-1.3) Estimated GFR (Cockcroft-Gault) 80.8 BUN/Creatinine Ratio 13 (6-20) Glucose Level 94 mg/dL (70-99) Lactic Acid Level 1.2 mmol/L (0.4-2.0) Calcium Level 8.8 mg/dL (8.5-10.1) Total Bilirubin 0.4 mg/dL (0.2-1.0) Aspartate Amino Transferase (AST) 13 U/L (15-37) L Alanine Aminotransferase (ALT) 22 U/L (16-63) Alkaline Phosphatase 75 U/L (46-116) Creatine Kinase 108 U/L (39-308) Creatine Kinase MB (Mass) < 0.5 ng/mL (0.0-3.6) Creatine Kinase MB Relative Index % (0-4) C-Reactive Protein, Quantitative 12.9 mg/L (0-3.3) H Total Protein 7.3 g/dL (6.4-8.2) Albumin 3.2 g/dL (3.4-5.0) L Albumin/Globulin Ratio 0.8 (1.0-1.7) L Procalcitonin < 0.10 ng/mL (0.00-0.10) Laboratory Tests 02/02/20 13:40 Laboratory Tests 02/02/20 13:40 Vital Signs: Vital Signs Date Time Temp Pulse Resp B/P (MAP) Pulse Ox O2 Delivery O2 Flow Rate FiO2 02/02/20 13:10 97.8 78 18 167/89 (115) 99 Room Air 97.8 EKG: EKG: [] Radiology/Procedures: Radiology/Procedures: []PROCEDURE: DUPLEX LOWER EXT ARTERIAL LEFT Arterial Doppler left lower extremity. HISTORY: Left lower extremity swelling. Arterial Doppler study was performed, color imaging and spectral Doppler were utilized for evaluation of the blood flow to the left lower extremity. There is a mildly prominent lymph node at the groin. There is triphasic flow at the left common femoral artery with velocity 119 cm/s. There is biphasic flow in the left deep femoral artery with velocity of 43 cm/s. There is triphasic flow throughout in the mid and proximal left superficial femoral artery with a velocity of 100 cm per sec in the mid artery. Velocity in the popliteal artery decreases to 66 cm/s with monophasic pattern. There is monophasic flow in the left posterior tibial with velocity of 85 cm/s. Velocity in proximal left posterior tibial has a velocity of 57 cm/s. Velocity is triphasic in the anterior tibial with velocity of 66 cm/s. IMPRESSION: 1. Evidence of at least moderate distal superficial femoral artery stenosis with decreased velocity and changes to monophasic in the popliteal artery. The actual stenosis was not well demonstrated. Electronically signed by: Chad Godinez MD (02/02/2020 3:12 PM) [id number] DICTATED and SIGNED BY: CHAD GODINEZ MD DATE: 02/02/20 1512 PROCEDURE: VENOUS LOWER EXTREMITY LEFT Left lower extremity venous ultrasound, : History: Swelling left lower extremity Duplex evaluation including grayscale, color flow and spectral Doppler analysis was performed. The femoral and popliteal veins show no filling defects to suggest DVT. The visualized calf veins are unremarkable. There is superficial edema in the anterior left calf. IMPRESSION: There is no sonographic evidence of deep vein thrombosis in the left lower extremity Electronically signed by: Chad Godinez MD (02/02/2020 3:04 PM) [id number] DICTATED and SIGNED BY: CHAD GODINEZ MD DATE: 02/02/20 1504 Course & Med Decision Making: Course & Med Decision Making Pertinent Labs and Imaging studies reviewed. (See chart for details) This is a 69-year-old male patient presenting to the ED today with left lower extremity swelling, redness and warmth since November 29, 2019. Venous Doppler of the left lower extremity was negative for DVT. Arterial Doppler was noted for at least moderate distal superficial femoral artery stenosis with decreased velocity and changes to monophasic in the popliteal artery. The actual stenosis was not well demonstrated. Labs CBC, CMP-no acute findings. Vitals are stable with normal temperature Patient offered admission to the hospital he declined Encouraged patient to follow-up with a vascular surgeon, he states he is to go through his PCP for referral. Discharged on clindamycin. Dragon Disclaimer: Dragon Disclaimer: This electronic medical record was generated, in whole or in part, using a voice recognition dictation system. Departure Departure Impression: Primary Impression: Cellulitis of lower extremity Qualified Codes: L03.116 - Cellulitis of left lower limb Additional Impression: Stenosis of artery of left lower extremity Disposition: HOME, SELF-CARE Condition: STABLE Referrals: Gerard LINDO MD (PCP) follow up in 1 week BRUCE KELLY MD follow up in 1-2 weeks Patient Instructions: Cellulitis, [id number] Additional Instructions: You were evaluated in the emergency room, and noted to have poor circulation in your left lower extremity, we recommend you follow-up with a vascular surgeon as soon as you can. We wrote you a prescription for clindamycin to clear the skin infection noted on your rodney. Try to elevate the extremity. Also follow- up with your primary care doctor in the next 7 days Scripts Clindamycin Hcl (CLINDAMYCIN HCL) 300 Mg Capsule 1 CAP PO TID, #21 CAP Prov: PRESLYE WIGGINS ICD 9 CODER 02/02/20 PRESLEY WIGGINS ICD 9 CODER Feb 02, 2020 16:08
[2020-02-02 16:43] VITALS: BP 172/99
== END 2020-02-02 17:40 | disposition home or self-care (01) ==
LOC: ER 12:49
DX: L03.116 Cellulitis of left lower limb (principal); I70.202 Unspecified atherosclerosis of native arteries of extremities, left leg; R60.0 Localized edema; E78.00 Pure hypercholesterolemia, unspecified; I10 Essential (primary) hypertension; F17.200 Nicotine dependence, unspecified, uncomplicated; F12.90 Cannabis use, unspecified, uncomplicated; Z88.6 Allergy status to analgesic agent
CPT/HCPCS: 36415; 80053; 82553; 83605; 84145; 85025; 85651; 86140; 87040; 90471; 90715; 93926; 93971; 96365; 96366; 96367; 99285; J2543; J3370; J7040

== ENCOUNTER 2020-02-14 08:30 | Outpatient (CLI) | payer BC ==
[2020-02-14] VITALS (13 sets, daily range): BP systolic 111–170; BP diastolic 69–111
[~2020-02-14] VITALS: Ht 175.3 cm; Wt 106.6 kg
[~2020-02-14 08:30] MED LIST changes: +CLIN300C8 PO
[2020-02-14] MEDS ORDERED: LIDOCAINE WITH 8.4% SOD BICARB 3 ML DISP.SYRIN. ONE (09:17)
[2020-02-14] MEDS ORDERED: IODIXANOL 320 MG/ML 100 ML VIAL. ONE (09:17)
[2020-02-14] MEDS ORDERED: ASPI81TA50 PO (09:39)
[2020-02-14 09:50] LABS: PROTHROMBIN TIME PATIENT 13.2 SEC (11.7-14.0)
[2020-02-14] MEDS ORDERED: LISI10TA2 PO (09:51)
[2020-02-14] MEDS ORDERED: ATEN1TAB3 PO (09:51)
[2020-02-14] MEDS ORDERED: MIDAZOLAM HCL/PF 2 MG/2 ML VIAL. ONE (10:01)
[2020-02-14] MEDS ORDERED: HEPARIN for IV BOLUS 10,000 UNIT/10 ML VIAL. ONE (10:01)
[2020-02-14] MEDS ORDERED: fentaNYL PF VIAL 100 MCG/2 ML VIAL ONE (10:01)
[2020-02-14] MEDS ORDERED: IODIXANOL 320 MG/ML 100 ML VIAL. IART ONE (10:15)
[2020-02-14] MEDS ORDERED: CONTRAST GIVEN. MC PRN (10:15)
[2020-02-14] MEDS ORDERED: LIDOCAINE WITH 8.4% SOD BICARB 3 ML DISP.SYRIN. IJ ONE (10:15)
[2020-02-14] MEDS ORDERED: MIDAZOLAM HCL/PF 2 MG/2 ML VIAL. IV ONE (10:15)
[2020-02-14] MEDS: fentaNYL PF VIAL 100 MCG/2 ML VIAL IV ONE (10:30)
[2020-02-14] MEDS ORDERED: NITROGLYCERIN 200 MCG/2 ML SYRINGE FOR CATH/VASC LAB. IART ONE (11:00)
--- NOTE | 2020-02-14 11:41 | PDOC ---
MODERATE SEDATION ASSESSMENT RISKS/ALTERNATIVES Risks/Alternatives Risks and alternatives of this type of sedation and procedure discussed with: RISK/ALTERNATIVES: Patient H & P ON CHART H & P H & P on chart and reviewed for co-morbid conditions and appropriate labs. H&P ON CHART: Yes STATUS PREG STATUS ASSESSED: Yes MEDS/ALLERGIES REVIEWED Meds/Allergies Reviewed Medications and Allergies including time and route of recently administered narcotics and sedatives. MEDS/ALLERGIES REVIEWED: Yes ASA RATING ASA RATING: II AIRWAY ASSESSMENT Airway Assessment Airway patency, oral function limitations, presence of caps, crowns, dentures, partials, and ability to extend neck assessed. AIRWAY ASSESSMENT: Yes MALLAMPATI SCORE MALLAMPATI SCORE: II PRE-SEDATION ASSESSMENT PRE-SEDATION ASSESSMENT: Yes CALVIN CIFUENTES MD Feb 14, 2020 11:41
--- NOTE | 2020-02-14 11:43 | PDOC ---
BRIEF OPERATIVE NOTE Pre-Op Diagnosis PAD Post-Op Diagnosis Microvascular disease Procedure Performed Aortogram and bilateral LE runoffs Surgeon Bienvenido Anesthesia Type: Conscious Sedation Findings No large vessel inflow stenoses. Mixed area's of small vessel obliteration and hyperemia in area of interest at medial distal left leg consistent with microvascular ischemia. CALVIN CIFUENTES MD Feb 14, 2020 11:43
--- NOTE | 2020-02-14 16:26 | RAD ---
Procedure: Aortogram and bilateral lower extremity diagnostic arteriograms Clinical Indication: 69-year-old male with lipodermatosclerosis of the left leg, left heel pain, decreased pulses, abnormal Doppler suggesting femoropopliteal stenosis. Sedation: Conscious sedation was administered with a total intraprocedural [id number] time of 75 minutes. The patient was monitored by a qualified independent observer throughout the time of sedation. Please refer to the medical record for exact doses of medications utilized to achieve moderate sedation. Antibiotics: None Exposure: Kerma-Area Product: 439 Gycm2 Contrast: 152 cc of Visipaque 320 contrast media Sterility: All elements of maximal sterile barrier technique including the use of a cap, mask, sterile gown, sterile gloves, large sterile sheet, appropriate hand hygiene, and 2% chlorhexidine for cutaneous antisepsis (or acceptable alternative antiseptic per current guidelines) were followed for this procedure. Consent: The procedure was explained in its entirety to the patient or the patients designated retail sales representative by a member of the treatment team, including a discussion of the risks, benefits and commonly accepted alternatives to the procedure, as well as the expected consequences of no therapy whatsoever. Discussion of the risks included, but was not limited to, those that are most frequent and those that are rare but possibly severe or life-threatening, as well as the possibility of unforeseen complications. Technique and Findings: Following informed consent, the patient was prepped and draped in usual sterile fashion. Ultrasound interrogation of the right groin revealed patency of the right common femoral artery with a small amount of calcified atherosclerosis. A Hardcopy ultrasound image was recorded. As a 21-gauge micropuncture needle was used to gain access to this vessel. The needle was exchanged over a wire for a 5 Australian sheath. A flush catheter was advanced into the abdominal aorta and used to perform aortography. There is mild atherosclerosis with no significant stenoses in aorta. No aneurysms are identified. The single bilateral renal arteries are widely patent. Mesenteric vasculature is grossly unremarkable, though origins are not well seen due to the AP projection. The catheter was then withdrawn to just above the aortic bifurcation and contrast angiography of the pelvic arteries is performed in multiple obliquities. There is mild to moderate multifocal atherosclerosis involving the iliac arteries, with no hemodynamically significant stenoses identified. Bilateral internal iliac arteries are patent. No aneurysms are seen. The bifurcation was then crossed and a 5 Australian sheath was exchanged for a long 6 Australian sheath which was advanced to the contralateral left common femoral artery. Contrast angiography of the left lower extremity was then performed. There is mild stenosis of the proximal superficial femoral artery, roughly 20%. A second similar stenosis is seen in the distal SFA. This was roughly 30%. No stenosis greater than 50% is identified in the SFA or popliteal artery. There is a trifurcation which is widely patent with mild proximal atherosclerosis involving the anterior tibial artery. All 3 runoff vessels are patent throughout their distribution, and there is antegrade flow into the posterior tibial artery the foot. The distal anterior tibial artery is widely patent to the level of the ankle, however there is abrupt occlusion of the dorsalis pedis artery. There is a patent pedal arch which is reconstituted via collaterals around the dorsalis pedis artery. In the posterior medial leg, just above the malleolus, there are patchy areas of decreased microvascularity mixed with areas of hyperemia. This corresponds to the area of abnormality clinically. There is some venous engorgement in this area as well likely due to the hyperemia. No aneurysms or vascular reformations are identified. The patient was then given 50 mcg of nitroglycerin intra-arterially into the left popliteal artery. Following a 1 minute delay, repeat angiography was performed demonstrating no significant change in the arterial appearance of this region, indicating no reversibility with vasodilatation. The catheter was then withdrawn to the left common femoral artery once again and repeat angiography was performed of the thigh in multiple obliquities to confirm the absence of any hemodynamically significant stenosis in the SFA or popliteal artery. The catheter was then removed in its entirety. The sheath was then retracted to the right external iliac artery and contrast angiography the right lower extremity was performed. The right common femoral artery, superficial femoral artery, and popliteal arteries are widely patent, with only a couple of short mild atherosclerotic plaque seen within the superficial femoral artery. There is patency of the anterior tibial artery at its origin with a small focal stenosis of roughly 40%. All 3 vessels are patent in their entirety. The posterior tibial artery provides in-line flow to the posterior tibial artery of the foot, and the anterior tibial artery appears to perfuse a patent dorsalis pedis artery as well, though this is not well seen and could reflect a collateral. Flow throughout the right leg is slow, likely due to cardiogenic factors. The sheath was exchanged for a minx closure device which was successfully utilized to obtain hemostasis. Complications: No immediate Impression: 1. Mild multifocal atherosclerosis with no hemodynamically significant stenoses identified in any distribution involving the aortoiliac, right lower extremity, or left lower extremity. 2. Patchy areas of decreased microvascularit intermixed with areas of hyperemia involving the medial distal left leg at the area of clinical interest. This has the appearance of microvascular obliteration, with patchy areas of hyperemia which may reflect cellulitis. There is no reversibility with administration of vasodilators. Recommend wound care consultation and possible hyperbaric oxygen, along with lifestyle modification including smoking cessation, and diligent management of hypertension and hypercholesterolemia. This patient has a history of prior CVA and should be on aspirin daily as well.
--- NOTE | 2020-02-14 17:43 | NUR ---
pt sat up in bed w/o any bleeding or swelling in rt groin site. pt then ambulated around room w/o any bleeding or swelling at rt groin site. dressing clean and intact at right groin site. pt is A&O x 4. denies any deep pain at groin site, just some tenderness. pt tolerating po well. has voided x 1. VSS. d/c instruction given, questions answered. out to vehicle per w/c- pt's to drive him home
== END 2020-02-14 17:49 | disposition home or self-care (01) ==
LOC: INTRAD 08:30
PROVIDERS: ATTEND Family Medicine
DX: I70.213 Atherosclerosis of native arteries of extremities with intermittent claudication, bilateral legs (principal); Z79.899 Other long term (current) drug therapy; Z79.01 Long term (current) use of anticoagulants
CPT/HCPCS: 36247; 36415; 75625; 75716; 76937; 85610; 85730; 99152; 99153; C1713; C1760; C1769; C1892; C1894; G0269; J1644; J2250; J3010; J3490; Q9967